=== PATIENT | male | born 1975 | race Caucasian/White ===

== ENCOUNTER 2020-08-11 14:33 | Emergency (ER) | payer SELFPAY ==
[2020-08-11 15:04] VITALS: BP 132/92; PULSE 87; RESP 14; TEMP 37; O2SAT 99; BMI 26.6
--- NOTE | 2020-08-11 15:08 | W.ED.DENTAL ---
HPI - Dental/Oral General: Chief complaint: Dental/Oral Stated complaint: pain from dental surgery Time Seen by Provider: 08/11/20 15:04 History of Present Illness: HPI Narrative: Patient is a 45-year-old male comes to the ED with dental pain. Patient had dental surgery on Thursday and had multiple upper right molars removed. He is having increased pain over the past couple days post surgery. He contacted his dentist today and the dentist told him to come to the ED to be evaluated and that he would see patient next week. Patient rates his pain a 10 out of 10. Denies any fevers, chills, nausea/vomiting. Associated symptoms: Denies fever(s) or odynophagia Review of Systems Const: Denies: fever(s), chills or fatigue Eyes: Denies: change in vision or eye discomfort ENMT: Reports: dental pain; Denies: throat pain, odynophagia, nasal discharge or nasal congestion Card: Denies: chest pain, palpitations, edema, swelling of feet/ankles, dyspnea on exertion or orthopnea Resp: Denies: dyspnea, productive cough or non-productive cough GI: Denies: abdominal pain, nausea, vomiting, diarrhea, constipation or hematochezia : Denies: flank pain, difficulty urinating, dysuria or hematuria Musc: Denies: neck pain, back pain or extremity swelling Skin/Breast: Denies: rash or new lesions Neuro: Denies: headache(s), numbness in extremities or weakness in extremities PFS ED PFSH: Medical History Panic disorder [episodic paroxysmal anxiety] Post-traumatic stress disorder, chronic Physical Exam Const: COMMON NORMALS: no acute distress, patient oriented x3 and alert GENERAL APPEARANCE: cooperative and comfortable HENMT: COMMON NORMALS: normocephalic HEAD & SCALP: normocephalic MOUTH: Normal oral and palatal mucosa present TEETH & GINGIVA: Yes other (Post multiple more removal on upper right jaw. Gingival edema no purulent ) THROAT: posterior oropharynx normal and uvula midline Neck/C-Spine: COMMON NORMALS: supple GENERAL: Yes normal visual inspection Resp: COMMON NORMALS: normal respiratory effort, No retractions, No use of accessory muscles and clear to auscultation bilaterally AUSCULTATION: clear to auscultation bilaterally Cardio: COMMON NORMALS: regular rate, regular rhythm, S1 normal heart sound present, S2 normal heart sound present, No gallops present (Cardio), No clicks present (Cardio), No murmurs present (Cardio) and Peripheral pulses 2+ throughout RATE: regular rate RHYTHM: regular rhythm HEART SOUNDS: S1 normal heart sound present and S2 normal heart sound present PERIPHERAL PULSES: Peripheral pulses 2+ throughout GI: COMMON NORMALS: Normal to inspection, nondistended, normoactive bowel sounds present, Soft to palpation, non-tender and no masses PALPATION: Yes Soft to palpation : COMMON NORMALS: Yes no CVA tenderness BLADDER/KIDNEY EXAM: Yes no CVA tenderness Back/Pelvis: COMMON NORMALS: no CVA tenderness Extremity: COMMON NORMALS: normal to inspection Neuro: COMMON NORMALS: patient oriented x3 and moves all extremities SENSORIUM/ORIENTATION: Yes alert Skin: GENERAL SKIN EXAM: dry skin Course Vital Signs: Vital signs: Vital Signs Temperature 98.6 F 08/11/20 15:04 Pulse Rate 84 08/11/20 15:43 Respiratory Rate 16 08/11/20 15:43 Blood Pressure 133/84 08/11/20 15:43 Pulse Oximetry 95 08/11/20 15:43 MDM - Dental/Oral MDM Narrative: Medical decision making narrative: Patient is a 47-year-old male comes to the ED with post dental pain. Patient had multiple right upper jaw molars removed several days ago. He is having increased pain since surgery. He called his dentist and they told him to come here to the ED to be evaluated. Patient was given a shot of morphine while here in the ED to help with dental pain. Patient has some gingival edema around surgical site but no other significant findings. Patient was discharged home given a prescription of [place] 5/325 tabs. Follow-up with dentist next week for reevaluation. Patient understood agree with plan. Discharge Plan Discharge Patient Disposition: Home Clinical Impression: Pain, dental Condition: Stable Prescriptions: No Action venlafaxine [Effexor XR] 150 mg capsule,extended release 24hr 150 mg PO DAILY Qty: 30 RF: 2 clonazepam 0.5 mg tablet 0.5 mg PO TID PRN (Reason: anxiety) Qty: 90 RF: 2 Discharge Orders: Discharge ED (Routine); Ordered 08/11/20 Ordered By: Seven Coleman Referrals: Delilah Grimm MD [Primary Care Provider] - Discharge Diet: Regular Discharge Activity: Resume usual activity Patient Instructions: Opioid Safety Activity Restrictions/Additional Instructions: Follow-up with dentist in a week for reevaluation. Take medications as prescribed. Return to the ER or your medical provider if condition worsens. Please read and understand discharge instructions. If any questions, please ask. Coding Level of Care Code ED General Utility Maintenance Repairer for [employer] Exam Comprehensive
[2020-08-11 15:25] VITALS: RESP 18
[2020-08-11] MEDS: morphine 4 mg/mL SDV 1 mL IM (15:25)
[2020-08-11 15:43] VITALS: BP 133/84; PULSE 84; RESP 16; O2SAT 95
== END 2020-08-11 15:44 | disposition home or self-care (01) ==
PROVIDERS: Emergency Provider Physician Assistant; PCP Family Medicine
DX: K08.89 Other specified disorders of teeth and supporting structures (principal)
CPT/HCPCS: 96372; 99283; J2270

== ENCOUNTER 2020-08-16 06:27 | Emergency (ER) | payer SELFPAY ==
[2020-08-16 06:30] VITALS: BP 127/85; PULSE 94; RESP 18; TEMP 36.6; O2SAT 97; BMI 26.9
[2020-08-16 06:36] VITALS: PULSE 94; O2SAT 99
[2020-08-16] MEDS: HYDROcodone-acetaminophen 5-325 mg Tablet 1 TAB PO (06:45)
[2020-08-16] MEDS: amoxicillin 500 mg Capsule PO (06:45)
--- NOTE | 2020-08-16 06:45 | W.ED.DENTAL ---
HPI - Dental/Oral General: Chief complaint: Dental/Oral Stated complaint: Rt side face pain Time Seen by Provider: 08/16/20 06:37 History of Present Illness: HPI Narrative: The patient comes to the ER complaining of right lower gum pain after he had a procedure on August 08 removing a few teeth. He says he is still in severe pain and it has gotten worse yesterday and has a job that he needs to be in less pain for for the next couple days until he can get into his dentist. Denies fevers. Normal voice able to eat and drink normal. Discussed with him not to drive while taking the hydrocodone as he will be considered intoxicated. He understands and will have his sister drive him. He has taken more than the recommended dose in the past 2 days of ibuprofen without relief of his pain. Onset (ago): day(s) (8) Severity: moderate Associated symptoms: Reports no associated symptoms; Denies ear or mastoid pain or tongue swelling Review of Systems General: Reports: 10 or more systems reviewed and unremarkable except in HPI and below Const: Denies: fatigue Eyes: Denies: change in vision, blurry vision or eye redness ENMT: Denies: throat pain, swelling of lips/tongue, ear or mastoid pain or nasal congestion Card: Denies: chest pain, palpitations, irregular heart rhythm, edema, dyspnea on exertion or orthopnea Resp: Denies: dyspnea, productive cough or non-productive cough GI: Denies: abdominal pain, diarrhea or GI cramping : Denies: flank pain, urinary frequency or urinary urgency Musc: Denies: neck pain, back pain, extremity pain, joint pain, joint redness, limited range of motion or muscle weakness Skin/Breast: Denies: rash, pruritus, erythema, skin pain or skin tenderness Neuro: Denies: headache(s), numbness in extremities, weakness in extremities, sensory changes, difficulty walking, dizziness, confusion or Slurred speech present Psych: Denies: anxiety or depression Endo: Denies: polyuria All/Imm: Denies: urticaria, throat swelling or tongue swelling PFSH ED PFSH: Medical History Panic disorder [episodic paroxysmal anxiety] Post-traumatic stress disorder, chronic Physical Exam Const: COMMON NORMALS: no acute distress, average body habitus, patient oriented x3, no limitations, healthy appearing, alert and well nourished GENERAL APPEARANCE: cooperative, comfortable, well kempt and well developed ORIENTATION/CONSCIOUSNESS: Yes awake, Yes oriented to person, Yes oriented to place and Yes oriented to time HENMT: COMMON NORMALS: normocephalic, external ears normal and Normal external nose present HEAD & SCALP: normal to inspection and normocephalic NOSE: Normal external nose present EXTERNAL EAR: Yes external ears normal MOUTH: Normal oral and palatal mucosa present THROAT: posterior oropharynx normal THROAT IMAGE: 1. Surgically removed teeth with tenderness to the area. No significant erythema or swelling. Eye: COMMON NORMALS: Equal, round and reactive pupils present and EOMs intact bilaterally GENERAL EYE: appearance normal, both eyes and all related structures PUPIL: Yes Equal, round and reactive pupils present Neck/C-Spine: COMMON NORMALS: full ROM, no lymphadenopathy, no meningeal signs and no JVD GENERAL: Yes normal visual inspection Lymph: LYMPHATIC: no lymphadenopathy noted Chest: COMMONS NORMALS: normal inspection of the chest and normal palpation of entire chest wall Resp: COMMON NORMALS: normal respiratory effort, No retractions, No use of accessory muscles, clear to auscultation bilaterally and percussion normal EFFORT & INSPECTION: Yes able to speak in complete sentences AUSCULTATION: clear to auscultation bilaterally PERCUSSION: percussion normal Cardio: COMMON NORMALS: no JVD, regular rate, regular rhythm, S1 normal heart sound present, S2 normal heart sound present and Peripheral pulses 2+ throughout RATE: regular rate RHYTHM: regular rhythm HEART SOUNDS: S1 normal heart sound present and S2 normal heart sound present PERIPHERAL PULSES: Peripheral pulses 2+ throughout GI: COMMON NORMALS: Normal to inspection, nondistended, normoactive bowel sounds present, Soft to palpation, non-tender and no masses INSPECTION: Yes normal to inspection PALPATION: Yes Soft to palpation : COMMON NORMALS: Yes no CVA tenderness BLADDER/KIDNEY EXAM: Yes no CVA tenderness Back/Pelvis: COMMON NORMALS: no CVA tenderness, thoracic and lumbar spine normal to inspection, no thoracic nor lumbar tenderness and thoraco-lumbar ROM normal Extremity: COMMON NORMALS: normal to inspection, full ROM, capillary refill normal, no joint enlargement and no pedal edema GENERAL: Yes normal exam except as noted Neuro: COMMON NORMALS: patient oriented x3, CN's II-XII intact bilaterally, moves all extremities, no focal motor deficits, no sensory deficits noted and gait normal SENSORIUM/ORIENTATION: Yes alert, Yes oriented to person, Yes oriented to place and Yes oriented to time MENINGEAL SIGNS: Yes no meningeal signs Psych: COMMON NORMALS: mental status grossly normal, Normal thought process present, cooperative, normal affect and speech normal APPEARANCE: Yes well kempt ATTITUDE: Yes calm SPEECH: Yes normal speech THOUGHT PROCESS: Normal thought process present Skin: COMMON NORMALS: no rashes or lesions noted GENERAL SKIN EXAM: no rashes or lesions noted Course Vital Signs: Vital signs: Vital Signs Temperature 97.9 F 08/16/20 06:30 Pulse Rate 94 08/16/20 06:36 Respiratory Rate 18 08/16/20 06:30 Blood Pressure 127/85 08/16/20 06:30 Pulse Oximetry 99 08/16/20 06:36 MDM - Dental/Oral MDM Narrative: Medical decision making narrative: Here for continued postsurgical pain. No significant signs of infection seen however will place on amoxicillin and give hydrocodone for pain. Discussed he cannot drive with this medicine. ER with worsening symptoms otherwise follow-up with dentist next Thursday as he already has scheduled Discharge Plan Discharge Patient Disposition: Home Clinical Impression: Dental caries Condition: Stable Prescriptions: New amoxicillin 500 mg capsule 500 mg PO TID 10 Days Qty: 30 RF: 0 hydrocodone-acetaminophen 5-325 mg tablet 1 tab PO Q6H PRN (Reason: pain) Qty: 12 RF: 0 No Action venlafaxine [Effexor XR] 150 mg capsule,extended release 24hr 150 mg PO DAILY Qty: 30 RF: 2 clonazepam 0.5 mg tablet 0.5 mg PO TID PRN (Reason: anxiety) Qty: 90 RF: 2 Discharge Orders: Discharge ED (Routine); Ordered 08/16/20 Ordered By: Akira Russo Referrals: Delilah Grimm MD [Primary Care Provider] - Discharge Diet: Advance as tolerated Discharge Activity: Resume usual activity Patient Instructions: Toothache (ED), Opioid Safety Activity Restrictions/Additional Instructions: You are likely still having postsurgical pain however an infection cannot be ruled out. Please take the amoxicillin to help with this and take the hydrocodone only for severe pain. Do not mix it with drugs or alcohol and do not operate machinery including driving a car while taking this medicine. Please return to the ER with worsening symptoms otherwise follow-up with your dentist next Thursday as you already have scheduled. Coding Level of Care Code ED Controls Engineer for Ananth Pérez
[2020-08-16 06:51] VITALS: PULSE 94; O2SAT 98
== END 2020-08-16 06:52 | disposition home or self-care (01) ==
PROVIDERS: Emergency Provider Family Medicine; PCP Family Medicine
DX: K02.9 Dental caries, unspecified (principal)
CPT/HCPCS: 99283

== ENCOUNTER 2020-09-06 09:41 | Emergency (ER) | payer SELFPAY ==
[2020-09-06 09:55] VITALS: TEMP 36.4; BMI 28.5
[2020-09-06 10:01] VITALS: BP 131/97; PULSE 98; RESP 14; O2SAT 99
--- NOTE | 2020-09-06 10:14 | ED_ITS ---
HPI - Dental/Oral General: Chief complaint: Dental/Oral Stated complaint: severe tooth aches Time Seen by Provider: 09/06/20 09:47 Source: patient Mode of arrival: ambulatory Limitations: no limitations History of Present Illness: HPI Narrative: 45-year-old male patient presents to the emergency department with dental pain. He states attempted to get into his dental provider today but was unable to do so and referred to the ED for further evaluation. He has an appointment on Thursday with his dentist. He reports dental extractions are scheduled with dental implants. He reports right lower dental pain x2 days, reports tooth is broken, experiencing sharp pain. MD Complaint: tooth pain Location: Tooth # (18) Duration: constant Severity: moderate Relieving factors: nothing Exacerbating factors: chewing and cold Context: history of dental caries and poor dental care Associated symptoms: Reports ear or mastoid pain and gum swelling; Denies fever(s) or odynophagia Treatment prior to arrival: other (IBu and APAP) Review of Systems General: Reports: 10 or more systems reviewed and unremarkable except in HPI and below Const: Denies: fever(s), chills, fatigue, malaise or diaphoresis Eyes: Denies: blurry vision or eye redness ENMT: Reports: dental pain and ear or mastoid pain; Denies: throat pain, odynophagia, swelling of lips/tongue, nasal congestion or nasal obstruction Card: Denies: chest pain, palpitations or irregular heart rhythm Resp: Denies: dyspnea, productive cough, non-productive cough or wheezing GI: Denies: abdominal pain, nausea or vomiting : Denies: dysuria Musc: Denies: back pain Skin/Breast: Denies: rash or pruritus Neuro: Denies: headache(s), weakness in extremities or behavioral changes Psych: Denies: anxiety, depression or change in appetite Lenard/Lymph: Denies: easy bruising PFS ED PFSH: Medical History Panic disorder [episodic paroxysmal anxiety] Post-traumatic stress disorder, chronic Physical Exam Const: COMMON NORMALS: no acute distress, patient oriented x3, healthy appearing, alert and well nourished GENERAL APPEARANCE: cooperative, comfortable and well hydrated ORIENTATION/CONSCIOUSNESS: Yes awake, Yes oriented to person, Yes oriented to place and Yes oriented to time HENMT: COMMON NORMALS: normocephalic, atraumatic, external ears normal, EAC's normal, TM's normal bilaterally, Normal external nose present and moist oral mucous membranes HEAD & SCALP: normal to inspection, normocephalic and atraumatic FACE & SINUS: normal facial exam and sinuses nontender NOSE: Normal external nose present and No nasal polyps present EXTERNAL EAR: Yes external ears normal EXTERNAL AUDITORY CANAL: EAC's normal TYMPANIC MEMBRANE: TM's normal bilaterally MOUTH: Normal oral and palatal mucosa present, lip normal and tongue normal TEETH & GINGIVA: Yes bridge (upper), Yes caries, Yes poor dentition and Yes teeth discoloration TEETH & GINGIVA IMAGES: 1. avulsion, old, dental caires with discoloration, small amount of gingival swelling and erythema THROAT: posterior oropharynx normal and tonsils normal Eye: COMMON NORMALS: Equal, round and reactive pupils present and EOMs intact bilaterally GENERAL EYE: appearance normal, both eyes and all related structures PUPIL: Yes Equal, round and reactive pupils present Neck/C-Spine: COMMON NORMALS: full ROM, no lymphadenopathy and supple GE NERAL: Yes normal visual inspection, Yes trachea midline and Yes other (Negative findings for Carlos angina) CERVICAL SPINE: Yes cervical ROM normal Lymph: LYMPHATIC: no lymphadenopathy noted Chest: COMMONS NORMALS: normal inspection of the chest Resp: COMMON NORMALS: normal respiratory effort and clear to auscultation bilaterally AUSCULTATION: clear to auscultation bilaterally Cardio: COMMON NORMALS: regular rhythm, S1 normal heart sound present, S2 normal heart sound present and Peripheral pulses 2+ throughout RHYTHM: regular rhythm HEART SOUNDS: S1 normal heart sound present and S2 normal heart sound present PERIPHERAL PULSES: Peripheral pulses 2+ throughout GI: COMMON NORMALS: Soft to palpation and non-tender INSPECTION: Yes normal to inspection PALPATION: Yes Soft to palpation : COMMON NORMALS: Yes no CVA tenderness BLADDER/KIDNEY EXAM: Yes no CVA tenderness Back/Pelvis: COMMON NORMALS: no CVA tenderness and thoracic and lumbar spine normal to inspection Extremity: COMMON NORMALS: normal to inspection and capillary refill normal Neuro: COMMON NORMALS: patient oriented x3 and no focal motor deficits SENSORIUM/ORIENTATION: Yes alert, Yes oriented to person, Yes oriented to place and Yes oriented to time Psych: COMMON NORMALS: mental status grossly normal, Normal thought process present and cooperative ACTIVITY/MOTOR BEHAVIOR: Yes appropriate eye contact THOUGHT PROCESS: Normal thought process present Skin: COMMON NORMALS: no rashes or lesions noted and turgor normal GENERAL SKIN EXAM: no rashes or lesions noted and turgor normal Course Vital Signs: Vital signs: Vital Signs Temperature 97.5 F L 09/06/20 09:55 Pulse Rate 98 09/06/20 10:01 Respiratory Rate 14 09/06/20 10:01 Blood Pressure 131/97 09/06/20 10:01 Pulse Oximetry 99 09/06/20 10:01 Discharge Plan Discharge Patient Disposition: Home Clinical Impression: Toothache, Dental caries Condition: Stable Prescriptions: New clindamycin HCl 300 mg capsule 300 mg PO QID 7 Days Qty: 28 RF: 0 Lidocaine Viscous 2 % solution 10 ml topical Q3H PRN (Reason: pain) Qty: 100 RF: 0 chlorhexidine gluconate 0.12 % mouthwash 15 ml buccal BID Qty: 118 RF: 0 No Action venlafaxine [Effexor XR] 150 mg capsule,extended release 24hr 150 mg PO DAILY Qty: 30 RF: 2 clonazepam 0.5 mg tablet 0.5 mg PO TID PRN (Reason: anxiety) Qty: 90 RF: 2 hydrocodone-acetaminophen 5-325 mg tablet 1 tab PO Q6H PRN (Reason: pain) Qty: 12 RF: 0 Discharge Orders: Discharge ED (Routine); Ordered 09/06/20 Ordered By: Leida Givens Referrals: Delilah Grimm MD [Primary Care Provider] - Discharge Diet: Soft Mechanical Discharge Activity: Resume usual activity Patient Instructions: Dental Abscess (ED), Dental Caries (ED), Toothache (ED), Opioid Safety Activity Restrictions/Additional Instructions: Apply dental wax as directed as discussed today to the affected tooth Follow-up with your dentist as scheduled on Thursday without fail Take antibiotics until all gone even if feeling better Take extra strength Tylenol, 1000 mg 3 times daily as needed for pain Do not exceed this dose as toxicity can occur Take 600 mg of ibuprofen 3 times daily as needed for pain Warm salt water swish and spit several times daily If you develop difficulty breathing, inability to swallow, return to the emergency department immediately Coding Level of Care Code ED Cyber Transport Systems Specialist for Ananth Pérez
[2020-09-06] MEDS: HYDROcodone-acetaminophen 5-325 mg Tablet 1 TAB PO (10:21)
== END 2020-09-06 10:25 | disposition home or self-care (01) ==
PROVIDERS: Emergency Provider Nurse Practitioner Family; PCP Family Medicine
DX: K02.9 Dental caries, unspecified (principal)
CPT/HCPCS: 99282

== ENCOUNTER 2020-09-14 11:39 | Emergency (ER) | payer SELFPAY ==
[2020-09-14 11:50] VITALS: BP 141/89; PULSE 82; RESP 18; TEMP 36.7; O2SAT 98; BMI 26.9
[2020-09-14 11:57] VITALS: BP 141/89; PULSE 82; RESP 18; TEMP 36.7; O2SAT 98
--- NOTE | 2020-09-14 12:09 | W.ED.DENTAL ---
HPI - Dental/Oral General: Chief complaint: Dental/Oral Stated complaint: DENTAL PAIN Time Seen by Provider: 09/14/20 11:58 History of Present Illness: HPI Narrative: Patient states that he is scheduled to follow-up with dental next Thursday to have tooth removed. He said he use lidocaine jelly and that is helping with discomfort but it continues to hurt. MD Complaint: tooth pain Location: Tooth # Teeth map: 1. Onset (ago): month(s) Duration: constant Severity: moderate Relieving factors: other (Lidocaine jelly) Exacerbating factors: chewing and cold Context: history of dental caries and poor dental care Associated symptoms: Reports no associated symptoms; Denies fever(s) Treatment prior to arrival: topical analgesic and oral analgesic Review of Systems Const: Denies: fever(s) or chills ENMT: Reports: dental pain and other Psych: Denies: anxiety [facility] ED PFSH: Medical History Panic disorder [episodic paroxysmal anxiety] Post-traumatic stress disorder, chronic Physical Exam Const: COMMON NORMALS: no acute distress HENMT: TEETH & GINGIVA IMAGES: 1. Tooth is broken black slight tenderness gum no swelling Psych: COMMON NORMALS: mental status grossly normal Course Vital Signs: Vital signs: Vital Signs Temperature 98.1 F 09/14/20 11:57 Pulse Rate 82 09/14/20 11:57 Respiratory Rate 18 09/14/20 11:57 Blood Pressure 141/89 09/14/20 11:57 Pulse Oximetry 98 09/14/20 11:57 MDM - Dental/Oral MDM Narrative: Medical decision making narrative: Story is changed some from previous visits. Patient is now scheduled to follow-up with dental next Thursday up in [place] have tooth removed. Patient told me that lidocaine gel is helping with pain but pain does discontinue after gel effects wear off. Discharge Plan Discharge Patient Disposition: Home Clinical Impression: Dental caries Condition: Stable Prescriptions: New clindamycin HCl 300 mg capsule 300 mg PO Q8H 7 Days Qty: 21 RF: 0 No Action venlafaxine [Effexor XR] 150 mg capsule,extended release 24hr 150 mg PO DAILY Qty: 30 RF: 2 clonazepam 0.5 mg tablet 0.5 mg PO TID PRN (Reason: anxiety) Qty: 90 RF: 2 hydrocodone-acetaminophen 5-325 mg tablet 1 tab PO Q6H PRN (Reason: pain) Qty: 12 RF: 0 Lidocaine Viscous 2 % solution 10 ml topical Q3H PRN (Reason: pain) Qty: 100 RF: 0 chlorhexidine gluconate 0.12 % mouthwash 15 ml buccal BID Qty: 118 RF: 0 Discharge Orders: Discharge ED (Routine); Ordered 09/14/20 Ordered By: Tj Potter Discharge Diet: Usual diet Discharge Activity: Resume usual activity Patient Instructions: Dental Caries (ED) Activity Restrictions/Additional Instructions: Follow-up with dental as scheduled Coding Level of Care Code ED Non Morse Intercept Technician for Ananth Pérez
== END 2020-09-14 12:16 | disposition home or self-care (01) ==
PROVIDERS: Emergency Provider Nurse Practitioner Family
DX: K02.9 Dental caries, unspecified (principal)
CPT/HCPCS: 99282

== ENCOUNTER 2020-11-04 09:11 | Emergency (ER) | payer SELFPAY ==
[2020-11-04 09:24] VITALS: BP 141/90; PULSE 96; RESP 15; TEMP 36.2; O2SAT 98; BMI 27.8
--- NOTE | 2020-11-04 09:27 | W.ED.DENTAL ---
HPI - Dental/Oral General: Chief complaint: Dental/Oral Stated complaint: requesting pain meds Time Seen by Provider: 11/04/20 09:16 History of Present Illness: HPI Narrative: Patient is a 45-year-old male comes to the ED with dental pain. Patient has been seen here in the ED for same dental pain back on September 14 and September 06. Patient says he was at the ED department at the hospital in [place] yesterday and they sent him home with an antibiotic and a prescription for Tylenol and ibuprofen. He states he has an appointment with a dentist this week to get his teeth pulled. His only complaint here in the ED today is the dental pain on the left side of his mouth. He says the Tylenol and ibuprofen are not helping. Associated symptoms: Denies fever(s) or odynophagia Review of Systems Const: Denies: fever(s), chills or fatigue Eyes: Denies: change in vision or eye discomfort ENMT: Reports: dental pain; Denies: throat pain, odynophagia, nasal discharge or nasal congestion Card: Denies: chest pain, palpitations, edema, swelling of feet/ankles, dyspnea on exertion or orthopnea Resp: Denies: dyspnea, productive cough or non-productive cough GI: Denies: abdominal pain, nausea, vomiting, diarrhea, constipation or hematochezia : Denies: flank pain, difficulty urinating, dysuria or hematuria Musc: Denies: neck pain, back pain or extremity swelling Skin/Breast: Denies: rash or new lesions Neuro: Denies: headache(s), numbness in extremities or weakness in extremities [facility] ED PFSH: Medical History Panic disorder [episodic paroxysmal anxiety] Post-traumatic stress disorder, chronic Physical Exam Const: COMMON NORMALS: no acute distress, patient oriented x3 and alert GENERAL APPEARANCE: cooperative and comfortable HENMT: COMMON NORMALS: normocephalic HEAD & SCALP: normocephalic MOUTH: Normal oral and palatal mucosa present TEETH & GINGIVA: Yes caries (Left lower molar #17), Yes gingiva abnormal edematous and Yes poor dentition THROAT: posterior oropharynx normal and uvula midline Neck/C-Spine: COMMON NORMALS: supple GENERAL: Yes normal visual inspection Resp: COMMON NORMALS: normal respiratory effort, No retractions, No use of accessory muscles and clear to auscultation bilaterally AUSCULTATION: clear to auscultation bilaterally Cardio: COMMON NORMALS: regular rate, regular rhythm, S1 normal heart sound present, S2 normal heart sound present, No gallops present (Cardio), No clicks present (Cardio), No murmurs present (Cardio) and Peripheral pulses 2+ throughout RATE: regular rate RHYTHM: regular rhythm HEART SOUNDS: S1 normal heart sound present and S2 normal heart sound present PERIPHERAL PULSES: Peripheral pulses 2+ throughout GI: COMMON NORMALS: Normal to inspection, nondistended, normoactive bowel sounds present, Soft to palpation, non-tender and no masses PALPATION: Yes Soft to palpation : COMMON NORMALS: Yes no CVA tenderness BLADDER/KIDNEY EXAM: Yes no CVA tenderness Back/Pelvis: COMMON NORMALS: no CVA tenderness Extremity: COMMON NORMALS: normal to inspection Neuro: COMMON NORMALS: patient oriented x3 and moves all extremities SENSORIUM/ORIENTATION: Yes alert Skin: GENERAL SKIN EXAM: dry skin Course Vital Signs: Vital signs: Vital Signs Temperature 97.1 F L 11/04/20 09:24 Pulse Rate 96 11/04/20 09:24 Respiratory Rate 15 11/04/20 09:24 Blood Pressure 141/90 11/04/20 09:24 Pulse Oximetry 98 11/04/20 09:24 MDM - Dental/Oral MDM Narrative: Medical decision making narrative: Patient is a 45-year-old male comes to the ED with dental pain. He is already on a prescription for an antibiotic and has an appointment with a dentist to have some of his pain teeth removed this week. His main complaint here is just the dental pain. Patient was given a dose of tramadol while here in the ED to help with pain. He was then discharged home and told to continue taking his previously prescribed antibiotic, ibuprofen and Tylenol. Return to ED precautions given. Patient understood and agreed with plan. Discharge Plan Discharge Patient Disposition: Home Clinical Impression: Pain due to dental caries Condition: Stable Prescriptions: No Action trazodone 50 mg tablet 50 mg PO .HS PRN (Reason: sleep) Qty: 30 RF: 2 venlafaxine [Effexor XR] 150 mg capsule,extended release 24hr 150 mg PO DAILY Qty: 30 RF: 2 clonazepam 0.5 mg tablet 0.5 mg PO TID PRN (Reason: anxiety) Qty: 90 RF: 2 hydrocodone-acetaminophen 5-325 mg tablet 1 tab PO Q6H PRN (Reason: pain) Qty: 12 RF: 0 Lidocaine Viscous 2 % solution 10 ml topical Q3H PRN (Reason: pain) Qty: 100 RF: 0 chlorhexidine gluconate 0.12 % mouthwash 15 ml buccal BID Qty: 118 RF: 0 Discharge Orders: Discharge ED (Routine); Ordered 11/04/20 Ordered By: Seven Coleman Discharge Diet: Regular Discharge Activity: Resume usual activity Patient Instructions: Dental Caries (ED) Activity Restrictions/Additional Instructions: Follow-up with dentist at your scheduled appointment this coming week. Continue taking your previously prescribed antibiotic and take [id number] ibuprofen or Tylenol per bottle instructions for pain. Return to the ER or your medical provider if condition worsens. Please read and understand discharge instructions. Thank you for choosing [facility] for your healthcare needs today. Please realize this is an emergency room and that we are providing you with a medical screening exam and this may not be complete and all inclusive of all the testing and or work up that you may need to determine your ailment or severity of your illness. It is very important that you follow up as instructed or that you return to the Emergency Department should you have concerns or if your condition changes or worsens in any way. Coding Level of Care Code ED Targeting Acquisition Officer for Ananth Pérez Exam Comprehensive
[2020-11-04] MEDS: TRAMadol 50 mg Tablet 100 MG PO (09:39)
== END 2020-11-04 09:45 | disposition home or self-care (01) ==
PROVIDERS: Emergency Provider Physician Assistant
DX: K02.9 Dental caries, unspecified (principal)
CPT/HCPCS: 99282

== ENCOUNTER 2020-12-12 06:56 | Emergency (ER) | payer SELFPAY ==
[2020-12-12 07:06] VITALS: BP 123/79; PULSE 92; RESP 18; TEMP 36.5; O2SAT 96; BMI 28.2
[2020-12-12 07:14] VITALS: BP 123/79; PULSE 94; O2SAT 95
--- NOTE | 2020-12-12 07:36 | ED_ITS ---
HPI - General Adult General: Chief complaint: General Medical Stated complaint: KNEE PAIN AND MOUTH PAIN Time Seen by Provider: 12/12/20 07:08 History of Present Illness: HPI narrative: This young man presents with chronic bilateral knee pain. Has seen emr specialist told that he needed knee replacements. He states that he has had 2 MRIs on his knees. Says it hurts for him to do his job and get down his knees on concrete. Patient also states he had a tooth pulled recently and a left part of the tooth in there and that causes some discomfort on his lower left gum molar area. Patient also says over the last 10 years he has had bloody stools. He said he has had 2 colonoscopies at [facility] and reported this to the specialist and they said that already have been able to find is a couple polyps. He said he is not had any medication prescribed to him for this. Said he has been told what is his problem. Onset (ago): year(s) Associated symptoms: Reports no associated symptoms; Deny chest pain, dyspnea, headache(s), nausea, rash or vomiting Review of Systems Const: Denies: fever(s), chills or body aches Eyes: Denies: change in vision or blurry vision ENMT: Reports: dental pain; Denies: throat pain or nasal congestion Card: Denies: chest pain or dyspnea on exertion Resp: Denies: dyspnea, productive cough or non-productive cough GI: Reports: hematochezia (See HPI); Denies: abdominal pain, nausea or vomiting : Denies: difficulty urinating Musc: Reports: joint pain (Bilateral knees); Denies: extremity pain Skin/Breast: Denies: rash Neuro: Denies: headache(s) Psych: Denies: anxiety or depression Lenard/Lymph: Denies: easy bruising PFS ED PFSH: Medical History Panic disorder [episodic paroxysmal anxiety] Post-traumatic stress disorder, chronic Social History Smoking and tobacco status: current every day smoker Physical Exam Const: COMMON NORMALS: no acute distress, average body habitus and patient oriented x3 HENMT: COMMON NORMALS: normocephalic HEAD & SCALP: normal to inspection and normocephalic FACE & SINUS: normal facial exam TEETH & GINGIVA IMAGES: 1. Appears to be piece of tooth in the gum molar 17 area. No redness or inflammation noted to the gum area Eye: COMMON NORMALS: conjunctivae normal GENERAL EYE: appearance normal, both eyes and all related structures CONJUNCTIVA: Yes conjunctivae normal Neck/C-Spine: COMMON NORMALS: no JVD Chest: COMMONS NORMALS: normal inspection of the chest Resp: COMMON NORMALS: normal respiratory effort Cardio: COMMON NORMALS: no JVD, regular rate and regular rhythm RATE: regular rate RHYTHM: regular rhythm GI: COMMON NORMALS: Normal to inspection, nondistended, normoactive bowel sounds present Extremity: COMMON NORMALS: normal to inspection and full ROM OTHER: Knees are without swelling today has full range of motion no tenderness noted on range of motion Neuro: COMMON NORMALS: patient oriented x3 Course Vital Signs: Vital signs: Vital Signs Temperature 97.7 F 12/12/20 07:06 Pulse Rate 94 12/12/20 07:14 Respiratory Rate 18 12/12/20 07:06 Blood Pressure 123/79 12/12/20 07:14 Pulse Oximetry 95 12/12/20 07:14 MDM - General Adult MDM Narrative: Medical decision making narrative: Mr. Barnett presents here to discuss ongoing chronic knee pain ongoing hematochezia. And ongoing dental pain. I provide Mr. Barnett with some recommendations possible treatments and advice on how to further pursue the chronic problems he has. Patient said he will be get established with a primary care provider here soon and seek referrals. Discharge Plan Discharge Patient Disposition: Home Clinical Impression: Chronic dental pain, Hematochezia Knee pain, chronic Qualifiers: Laterality: bilateral Qualified Code(s): M25.561 - Pain in right knee Condition: Stable Prescriptions: New prednisone 10 mg tablet 10 mg PO DAILY Qty: 14 RF: 0 Lidocaine Viscous 2 % solution 1 applic mucous membrane Q3H PRN (Reason: pain) Qty: 100 RF: 0 No Action baclofen 10 mg tablet 10 mg PO BID PRN (Reason: muscle pain) Qty: 8 RF: 0 naproxen 500 mg tablet 500 mg PO BID 10 Days Qty: 20 RF: 0 venlafaxine [Effexor XR] 150 mg capsule,extended release 24hr 150 mg PO DAILY Qty: 30 RF: 2 clonazepam 0.5 mg tablet 0.5 mg PO TID PRN (Reason: anxiety) Qty: 90 RF: 2 hydrocodone-acetaminophen 5-325 mg tablet 1 tab PO Q6H PRN (Reason: pain) Qty: 12 RF: 0 Discharge Orders: Discharge ED (Routine); Ordered 12/12/20 Ordered By: Tj Potter Discharge Diet: Usual diet Discharge Activity: Increase activity as tolerated Patient Instructions: Knee Pain (ED), Arthralgia (ED), Toothache (ED) Activity Restrictions/Additional Instructions: Follow-up with medical provider as directed. Take medications as prescribed. Return to the ER or your medical provider if condition worsens. Please read and understand discharge instructions. If any questions ask please. Get established primary care provider soon as possible and see about getting referrals to GI specialist and emr specialist. Stand Alone Forms: Work/School Release Coding Level of Care Code ED Superintendent Storage Area for Ananth Fwd Exam Comprehensive
== END 2020-12-12 07:36 | disposition home or self-care (01) ==
LOC: ER 08:01
PROVIDERS: Emergency Provider Nurse Practitioner Family
DX: G89.29 Other chronic pain (principal); M25.561 Pain in right knee; K08.89 Other specified disorders of teeth and supporting structures; K92.1 Melena; F17.210 Nicotine dependence, cigarettes, uncomplicated
CPT/HCPCS: 99282

== ENCOUNTER 2021-02-22 02:03 | Emergency (ER) | payer SELFPAY ==
[2021-02-22 02:08] VITALS: BP 134/94; PULSE 77; RESP 18; TEMP 36.7; O2SAT 98; BMI 28.2
--- NOTE | 2021-02-22 02:23 | W.ED.EXTPRO ---
HPI - Extremity Problem General: Chief complaint: Extremity Problem,Nontraumatic Stated complaint: Leg Pain both Legs Time Seen by Provider: 02/22/21 02:23 History of Present Illness: HPI Narrative: 45-year-old male patient comes in today for complaints of lower extremity pains after COVID-19 vaccine. Patient had vaccine on Thursday started having pain and discomfort last night and has been unable to sleep tonight due to his leg discomfort. Patient has been using some Tylenol and ibuprofen with minimal relief. Patient has a history of trauma to the left lower leg. Review of Systems General: Reports: 10 or more systems reviewed and unremarkable except in HPI and below Musc: Reports: other (Leg pain.) PFS ED PFSH: Medical History Panic disorder [episodic paroxysmal anxiety] Post-traumatic stress disorder, chronic Social History Smoking and tobacco status: current every day smoker Physical Exam Const: COMMON NORMALS: no acute distress and patient oriented x3 GENERAL APPEARANCE: cooperative HENMT: COMMON NORMALS: normocephalic and Normal external nose present HEAD & SCALP: normal to inspection and normocephalic NOSE: Normal external nose present Eye: GENERAL EYE: appearance normal, both eyes and all related structures Neck/C-Spine: COMMON NORMALS: full ROM Chest: COMMONS NORMALS: normal inspection of the chest Resp: COMMON NORMALS: normal respiratory effort EFFORT & INSPECTION: Yes able to speak in complete sentences Cardio: COMMON NORMALS: regular rate and regular rhythm RATE: regular rate RHYTHM: regular rhythm GI: COMMON NORMALS: non-tender Extremity: COMMON NORMALS: normal to inspection Neuro: COMMON NORMALS: patient oriented x3 and moves all extremities Psych: COMMON NORMALS: mental status grossly normal and cooperative Skin: COMMON NORMALS: no rashes or lesions noted GENERAL SKIN EXAM: no rashes or lesions noted Course Vital Signs: Vital signs: Vital Signs Temperature 98.1 F 02/22/21 02:08 Pulse Rate 77 02/22/21 02:08 Respiratory Rate 18 02/22/21 02:08 Blood Pressure 134/94 02/22/21 02:08 Pulse Oximetry 98 02/22/21 02:08 MDM - Extremity (Nontraumatic) MDM Narrative: Medical decision making narrative: 45-year-old male patient comes in today for complaints of bilateral lower leg pain worse on the left. Patient got Covid vaccine done on Thursday and has had increased leg discomfort for the last 2 nights. Exam notes no redness or swelling to the lower extremities. Pulses are intact. Vital signs are normal. Differential diagnosis includes but not limited to myalgias due to COVID-19 vaccinations, DVT, arthritis, restless legs syndrome. There is no sign of DVT or other signs of inflammation. Suspect patient probably has myalgias secondary to his vaccine administration. I encourage fluids rest Tylenol and ibuprofen. Patient was given a prescription for 7 tablets of hydrocodone for breakthrough pain. Patient agreed to plan and need for follow-up or return to ER Discharge Plan Discharge Patient Disposition: Home Clinical Impression: Myalgia after COVID-19 vaccination Condition: Stable Prescriptions: New hydrocodone-acetaminophen 5-325 mg tablet 1 tab PO Q8H PRN (Reason: pain) Qty: 7 RF: 0 No Action clonazepam 0.5 mg tablet 0.5 mg PO QID PRN (Reason: anxiety) Qty: 120 RF: 2 venlafaxine [Effexor XR] 150 mg capsule,extended release 24hr 150 mg PO DAILY Qty: 30 RF: 2 baclofen 10 mg tablet 10 mg PO BID PRN (Reason: muscle pain) Qty: 8 RF: 0 naproxen 500 mg tablet 500 mg PO BID 10 Days Qty: 20 RF: 0 prednisone 10 mg tablet 10 mg PO DAILY Qty: 14 RF: 0 Lidocaine Viscous 2 % solution 1 applic mucous membrane Q3H PRN (Reason: pain) Qty: 100 RF: 0 hydrocodone-acetaminophen 5-325 mg tablet 1 tab PO Q6H PRN (Reason: pain) Qty: 12 RF: 0 Discharge Orders: Discharge ED (Routine); Ordered 02/22/21 Ordered By: Beni Ge Discharge Diet: Usual diet Discharge Activity: Increase activity as tolerated Patient Instructions: Opioid Safety Activity Restrictions/Additional Instructions: Activity as tolerated. Drink plenty of water with medication. Use acetaminophen and ibuprofen to control discomfort. Use hydrocodone for breakthrough pain. Follow-up with primary care for further instruction. Return to the ER for new concerns. Coding Level of Care Code ED Medical Voucher Clerk for Ananth Pérez
[2021-02-22] MEDS: HYDROcodone-acetaminophen 5-325 mg Tablet 1 TAB PO (02:53)
[2021-02-22 03:06] VITALS: BP 119/77; PULSE 79; RESP 16; O2SAT 99
== END 2021-02-22 03:00 | disposition home or self-care (01) ==
PROVIDERS: Emergency Provider Nurse Practitioner Family
DX: M79.10 Myalgia, unspecified site (principal); T50.B95A Adverse effect of other viral vaccines, initial encounter; F17.210 Nicotine dependence, cigarettes, uncomplicated
CPT/HCPCS: 99282

== ENCOUNTER 2021-03-20 09:21 | Emergency (ER) | payer SELFPAY ==
[2021-03-20 09:32] VITALS: BP 145/90; PULSE 86; RESP 18; TEMP 37; O2SAT 97; BMI 28.2
--- NOTE | 2021-03-20 10:11 | W.ED.EXTPRO ---
HPI - Extremity Problem General: Chief complaint: Extremity Problem,Nontraumatic Stated complaint: Pain in Both Knees Time Seen by Provider: 03/20/21 09:22 Source: patient Mode of arrival: ambulatory Limitations: no limitations History of Present Illness: HPI Narrative: Patient is a 45-year-old male who presents to ED today with a complaint of bilateral (left greater than right) knee pain. Patient tells me he has suffered from chronic knee pain for several years. He states a fairly significant injury to his left knee resulting in internal derangement that was never fixed operatively. He tells me he was seen by an orthopedic surgeon at [facility] in [place] last year who told him both knees probably needed to be replaced but they did not recommend surgery given his young age. Patient tells me he has an appointment with Dr. Avendano at our orthopedic clinic in approximately 2 weeks for a second opinion. He tells me he has been treating at home with 800mg ibuprofen without relief. He states he is here requesting pain relief, mainly something to take at night, as his discomfort is causing him to not sleep. MD Complaint: joint swelling and joint pain Pain Consistency: constant Location: left, right and knee Relieving factors: immobilization Exacerbating factors: range of motion, weight bearing, walking and palpation Associated symptoms: Reports no associated symptoms; Deny chest pain, fever(s) or rash Review of Systems Const: Denies: fever(s), chills, body aches, fatigue or malaise Card: Denies: chest pain Resp: Denies: dyspnea GI: Denies: abdominal pain Musc: Reports: joint pain and joint swelling; Denies: neck pain, back pain, extremity pain or extremity swelling Skin/Breast: Denies: rash Neuro: Denies: headache(s), numbness in extremities, weakness in extremities or sensory changes [facility] ED PFSH: Medical History Panic disorder [episodic paroxysmal anxiety] Post-traumatic stress disorder, chronic Social History Smoking and tobacco status: current every day smoker Physical Exam Const: COMMON NORMALS: no acute distress, average body habitus, patient oriented x3, no limitations, healthy appearing, alert and well nourished Extremity: COMMON NORMALS: capillary refill normal, no clubbing, cyanosis or edema, no calf tenderness and no pedal edema GENERAL: Yes normal exam except as noted RIGHT LOWER EXTREMITY: Yes knee joint LEFT LOWER EXTREMITY: Yes knee joint Neuro: COMMON NORMALS: patient oriented x3, moves all extremities, no focal motor deficits, no sensory deficits noted and gait normal SENSORIUM/ORIENTATION: Yes alert Skin: COMMON NORMALS: no rashes or lesions noted GENERAL SKIN EXAM: no rashes or lesions noted TRAUMA: no lacerations or abrasions Course Vital Signs: Vital signs: Vital Signs Temperature 98.6 F 03/20/21 09:32 Pulse Rate 86 03/20/21 09:32 Respiratory Rate 18 03/20/21 09:32 Blood Pressure 145/90 03/20/21 09:32 Pulse Oximetry 97 03/20/21 09:32 MDM - Extremity (Nontraumatic) MDM Narrative: Medical decision making narrative: Verified appointment and he is scheduled to see Dr. Avendano on 04/01. He also told me he has an upcoming pain management appointment for the first week of April (I cannot find this appointment so we will have case management check and schedule him one if he does not already). I explained to patient that we normally do not prescribe controlled substances from the ED for chronic pain nor will we continue following this visit. I don't see any red flags on his history or presentation so will give him the benefit of the doubt and try to get him some relief. He states he would just like to take something to help with pain at night so he can get some rest. Discharge Plan Discharge Patient Disposition: Home Clinical Impression: Bilateral chronic knee pain Condition: Stable Prescriptions: Changed hydrocodone-acetaminophen 5-325 mg tablet 1 tab PO DAILY PRN (Reason: pain) Qty: 10 RF: 0 Discontinued hydrocodone-acetaminophen 5-325 mg tablet 1 tab PO Q6H PRN (Reason: pain) Qty: 12 RF: 0 No Action clonazepam 0.5 mg tablet 0.5 mg PO QID PRN (Reason: anxiety) Qty: 120 RF: 2 venlafaxine [Effexor XR] 150 mg capsule,extended release 24hr 150 mg PO DAILY Qty: 30 RF: 2 baclofen 10 mg tablet 10 mg PO BID PRN (Reason: muscle pain) Qty: 8 RF: 0 naproxen 500 mg tablet 500 mg PO BID 10 Days Qty: 20 RF: 0 prednisone 10 mg tablet 10 mg PO DAILY Qty: 14 RF: 0 Lidocaine Viscous 2 % solution 1 applic mucous membrane Q3H PRN (Reason: pain) Qty: 100 RF: 0 Discharge Orders: Discharge ED (Routine); Ordered 03/20/21 Ordered By: Shu Mireles Patient Instructions: Opioid Safety Activity Restrictions/Additional Instructions: [facility] is committed to fighting the nationwide opiate epidemic. We are providing ALL patients with information regarding opiate safety. If you received opiate pain medication during your stay or if you received a prescription for opiate pain medication-please review this handout. If not, you may disregard. Thank you. You are scheduled at orthopedics with Dr. Avendano on 04/01 at 2 PM. Make sure you attend this appointment for further evaluation of knee pain. As we discussed the ED will not prescribe any further opiate pain medication following this visit. I hope you begin to feel better soon. Coding Level of Care Code ED Process Treater for Ananth Pérez
--- NOTE | 2021-03-26 15:02 | DCPLANNER ---
sharepoint manager had message to look into patients pain management appointment. sharepoint manager called patient to discuss the appointment information, rn case mgr was unable to speak with patient or leave a voicemail for patient at this time.
== END 2021-03-20 10:33 | disposition home or self-care (01) ==
PROVIDERS: Emergency Provider Physician Assistant
DX: G89.29 Other chronic pain (principal); M25.562 Pain in left knee; M25.561 Pain in right knee; F17.210 Nicotine dependence, cigarettes, uncomplicated
CPT/HCPCS: 99281

== ENCOUNTER → 2021-05-08 11:22 | Outpatient (BNVA) | payer SELFPAY | PROVIDERS: Referring Provider Family Medicine; Visit Provider Orthopaedic Surgery | DX: M25.562 Pain in left knee (principal); M25.561 Pain in right knee; M25.861 Other specified joint disorders, right knee; M25.862 Other specified joint disorders, left knee; M25.761 Osteophyte, right knee; M25.762 Osteophyte, left knee | CPT/HCPCS: 73560; 73565 ==

== ENCOUNTER 2021-05-08 12:00 | Emergency (ER) | payer SELFPAY ==
[2021-05-08 12:09] VITALS: BP 112/81; PULSE 90; RESP 18; O2SAT 98; BMI 28.2
--- NOTE | 2021-05-08 12:35 | ED_ITS ---
HPI - Extremity Problem General: Chief complaint: Extremity Problem,Nontraumatic Stated complaint: BLE PAIN: SEEN TODAY AT ORTHO Time Seen by Provider: 05/08/21 12:17 History of Present Illness: HPI Narrative: Patient presents here immediately after appoint with orthopedic consult with Dr. Avendano. Patient was diagnosed with mild to moderate osteoarthritis knees. Patient asking for pain medication to take at night to help with his knee pain. Patient does not have a PCP established. MD Complaint: joint pain Onset (ago): year(s) Pain Consistency: intermittent Location: knee Severity scale (1-10): 3 Quality: aching Radiation: none Exacerbating factors: range of motion Associated symptoms: Reports no associated symptoms; Deny chest pain, fever(s) or rash Review of Systems Const: Denies: fever(s), chills or body aches Eyes: Denies: change in vision or blurry vision ENMT: Denies: throat pain or nasal congestion Card: Denies: chest pain or dyspnea on exertion Resp: Denies: dyspnea, productive cough or non-productive cough GI: Denies: abdominal pain, nausea or vomiting : Denies: difficulty urinating Musc: Denies: extremity pain Skin/Breast: Denies: rash Neuro: Denies: headache(s) Psych: Denies: anxiety or depression Lenard/Lymph: Denies: easy bruising PFSH ED PFSH: Medical History Nicotine dependence, cigarettes, uncomplicated Panic disorder [episodic paroxysmal anxiety] Post-traumatic stress disorder, chronic Psychiatric care Physical Exam Const: COMMON NORMALS: no acute distress GENERAL APPEARANCE: cooperative Resp: COMMON NORMALS: normal respiratory effort Psych: COMMON NORMALS: mental status grossly normal Course Vital Signs: Vital signs: Vital Signs Pulse Rate 90 05/08/21 12:09 Respiratory Rate 18 05/08/21 12:09 Blood Pressure 112/81 05/08/21 12:09 Pulse Oximetry 98 05/08/21 12:09 Discharge Plan Discharge Patient Disposition: Home Clinical Impression: Osteoarthritis, knee Qualifiers: Osteoarthritis type: primary Laterality: bilateral Qualified Code(s): M17.0 - Bilateral primary osteoarthritis of knee Condition: Stable Prescriptions: New Celebrex 400 mg capsule 400 mg PO .hs PRN (Reason: pain) Qty: 14 RF: 0 Voltaren Arthritis Pain 1 % gel 4 g topical QID Qty: 100 RF: 0 No Action clonazepam 0.5 mg tablet 0.5 mg PO QID PRN (Reason: anxiety) Qty: 120 RF: 2 venlafaxine [Effexor XR] 150 mg capsule,extended release 24hr 150 mg PO DAILY Qty: 30 RF: 2 naproxen 500 mg tablet 500 mg PO BID 10 Days Qty: 20 RF: 0 Lidocaine Viscous 2 % solution 1 applic mucous membrane Q3H PRN (Reason: pain) Qty: 100 RF: 0 Discharge Orders: Discharge ED (Routine); Ordered 05/08/21 Ordered By: Tj Potter Discharge Diet: Usual diet Discharge Activity: Resume usual activity Patient Instructions: Osteoarthritis (ED) Activity Restrictions/Additional Instructions: Follow-up [place] [facility] for further care and further prescription. Can alternate heat and ice to knees as needed. Keep appointment with Dr. Avendano as scheduled Coding Level of Care Code ED Electrical Instrument Repairer for Ananth Pérez
--- NOTE | 2021-05-09 15:28 | PC.SOCIAL ---
attempted to reach patient to set up with pcp. called 3 times and telegraphic typewriter operator wasn't successful. will try again tomorrow.
--- NOTE | 2021-05-10 12:04 | PC.SOCIAL ---
gag writer has called pt yesterday and today, voicemail left for patient to return call. gag writer trying to get pt established with pcp. will continue to try to contact pt.
--- NOTE | 2021-05-10 12:42 | PC.SOCIAL ---
Addendum entered by Kaelyn Calles RN 05/10/21 13:28: also spoke to patient about H financial assistance. pt reports he has the paperwork. typewriter assembly and parts inspector encouraged pt to fill out and if he needs assistance to call. typewriter assembly and parts inspector's # provided. Original Note: spoke with pt. pt reports he is filling for disability and doesn't want set up with pcp at this time. he states he is working with [facility] at this time. pt will return call to typewriter assembly and parts inspector if he needs a pcp set up.
== END 2021-05-08 12:30 | disposition home or self-care (01) ==
LOC: ER 12:33
PROVIDERS: Emergency Provider Nurse Practitioner Family
DX: M17.0 Bilateral primary osteoarthritis of knee (principal); F17.210 Nicotine dependence, cigarettes, uncomplicated
CPT/HCPCS: 99282

== ENCOUNTER 2021-09-11 23:57 | Emergency (ER) | payer SELFPAY ==
[2021-09-12 00:34] VITALS: BP 124/90; PULSE 78; RESP 20; TEMP 36.7; O2SAT 96; BMI 28.5
--- NOTE | 2021-09-12 01:39 | ED_ITS ---
HPI - Extremity Problem General: Chief complaint: General Medical Stated complaint: pain in R leg. Time Seen by Provider: 09/12/21 01:24 Source: patient Mode of arrival: ambulatory Limitations: no limitations History of Present Illness: Patient is a 46-year-old male who presents to ED today with a complaint of right knee pain. Patient tells me he has chronic pain in the knee and has been diagnosed with severe osteoarthritis previously. He states he saw Dr. Avendano in May who stated eventually he would require TKA but certainly was hesitant about this given his age. Patient states he had been doing okay rating his pain constantly at a 5-7. He states over the past few weeks he feels like pain has worsened. He states he has a follow-up appoint with Dr. Avendano in one week for re-evaluation. Patient is not had any new injuries or trauma. Patient has been taking 800mg Ibuprofen at home without much relief. States he hasn't slept in two day secondary to pain worsening at night. MD Complaint: joint swelling and joint pain Onset (ago): year(s) Pain Consistency: constant Location: right and lower extremity Severity scale (1-10): 10 Quality: constant Radiation: proximal Relieving factors: nothing Exacerbating factors: range of motion, weight bearing and walking Associated symptoms: Reports no associated symptoms; Deny chest pain, fever(s) or rash Review of Systems Const: Denies: fever(s), chills, body aches, fatigue or malaise Card: Denies: chest pain Resp: Denies: dyspnea Musc: Reports: joint pain (R knee) and joint swelling (R knee); Denies: joint redness Skin/Breast: Denies: rash, new lesions or changes in skin color Neuro: Denies: numbness in extremities, weakness in extremities or sensory changes PFS ED PFSH: Medical History Nicotine dependence, cigarettes, uncomplicated Panic disorder [episodic paroxysmal anxiety] Post-traumatic stress disorder, chronic Psychiatric care Physical Exam Const: COMMON NORMALS: no acute distress, patient oriented x3, no limitations and alert Extremity: GENERAL: Yes normal exam except as noted RIGHT LOWER EXTREMITY: Yes knee joint (TTP throughout joint; mild swelling/effusion) Right knee: Yes neurovascular exam (normal) Neuro: COMMON NORMALS: patient oriented x3, moves all extremities, no focal motor deficits and no sensory deficits noted SENSORIUM/ORIENTATION: Yes alert Skin: COMMON NORMALS: no rashes or lesions noted GENERAL SKIN EXAM: no rashes or lesions noted Course Vital Signs: Vital signs: Vital Signs Temperature 98.1 F 09/12/21 00:34 Pulse Rate 78 09/12/21 00:34 Respiratory Rate 20 H 09/12/21 00:34 Blood Pressure 124/90 09/12/21 00:34 Pulse Oximetry 96 09/12/21 00:34 MDM - Extremity (Nontraumatic) Medical Decision Making Patient was instructed to get a PCP and follow up with them in addition to his appointments with orthopedics. Will give 10 tramadol and he can take one a night to help him sleep. Told patient we will not do any further controlled medications for chronic pains. Discharge Plan Discharge Patient Disposition: Home Clinical Impression: Osteoarthritis of knees, bilateral Condition: Stable Prescriptions: New tramadol 50 mg tablet 50 mg PO Q8H PRN (Reason: pain) Qty: 10 0RF No Action venlafaxine [Effexor XR] 150 mg capsule,extended release 24hr 150 mg PO DAILY Qty: 30 2RF clonazepam 0.5 mg tablet 0.5 mg PO QID PRN (Reason: anxiety) Qty: 120 2RF naproxen 500 mg tablet 500 mg PO BID 10 Days Qty: 20 0RF Rx Instructions: 540b Lidocaine Viscous 2 % solution 1 applic mucous membrane Q3H PRN (Reason: pain) Qty: 100 0RF Celebrex 400 mg capsule 400 mg PO .hs PRN (Reason: pain) Qty: 14 0RF Voltaren Arthritis Pain 1 % gel 4 g topical QID Qty: 100 0RF Rx Instructions: apply to single knee, ankle, foot; for foot includes sole/toes/top of foot Discharge Orders: Discharge ED (Routine); Ordered 09/12/21 Ordered By: Shu Mireles Coding Level of Care Code ED Business Administration Program Chair for Ananth Pérez
[2021-09-12] MEDS: TRAMadol 50 mg Tablet PO (01:45)
== END 2021-09-12 01:49 | disposition home or self-care (01) ==
PROVIDERS: Emergency Provider Physician Assistant
DX: M17.0 Bilateral primary osteoarthritis of knee (principal); F17.210 Nicotine dependence, cigarettes, uncomplicated
CPT/HCPCS: 99282

== ENCOUNTER 2021-10-27 22:56 | Emergency (ER) | payer SELFPAY ==
[2021-10-27 23:16] VITALS: BP 120/76; PULSE 78; RESP 18; TEMP 37; O2SAT 98; BMI 28.5
--- NOTE | 2021-10-27 23:23 | ED_ITS ---
HPI - Dental/Oral General: Chief complaint: Dental/Oral Stated complaint: tooth pain Time Seen by Provider: 10/27/21 22:59 History of Present Illness: Patient is a 46-year-old male who comes to the ED with dental pain. Dental pain is located at left back molar. He rates his pain currently a 9 out of 10 and says he has not been able to get any sleep. He has been taking an antibiotic and scheduled to see his dentist this coming Thursday to have tooth pulled. Associated symptoms: Denies fever(s) or odynophagia Review of Systems Const: Denies: fever(s), chills or fatigue Eyes: Denies: change in vision or eye discomfort ENMT: Reports: dental pain; Denies: throat pain, odynophagia, nasal discharge or nasal congestion Card: Denies: chest pain, palpitations, edema, swelling of feet/ankles, dyspnea on exertion or orthopnea Resp: Denies: dyspnea, productive cough or non-productive cough GI: Denies: abdominal pain, nausea, vomiting, diarrhea, constipation or hematochezia : Denies: flank pain, difficulty urinating, dysuria or hematuria Musc: Denies: neck pain, back pain or extremity swelling Skin/Breast: Denies: rash or new lesions Neuro: Denies: headache(s), numbness in extremities or weakness in extremities PFSH ED PFSH: Medical History Nicotine dependence, cigarettes, uncomplicated Panic disorder [episodic paroxysmal anxiety] Post-traumatic stress disorder, chronic Psychiatric care Physical Exam Const: COMMON NORMALS: patient oriented x3 and alert GENERAL APPEARANCE: cooperative HENMT: COMMON NORMALS: normocephalic HEAD & SCALP: normocephalic MOUTH: Normal oral and palatal mucosa present TEETH & GINGIVA: Yes abnormal tooth and associated gingiva (Lower left third molar has extensive decay) lower left third molar tender and Yes poor dentition THROAT: posterior oropharynx normal and uvula midline Neck/C-Spine: COMMON NORMALS: supple GENERAL: Yes normal visual inspection Resp: COMMON NORMALS: normal respiratory effort, No retractions, No use of accessory muscles and clear to auscultation bilaterally AUSCULTATION: clear to auscultation bilaterally Cardio: COMMON NORMALS: regular rate, regular rhythm, S1 normal heart sound present, S2 normal heart sound present, No gallops present (Cardio), No clicks present (Cardio), No murmurs present (Cardio) and Peripheral pulses 2+ throughout RATE: regular rate RHYTHM: regular rhythm HEART SOUNDS: S1 normal heart sound present and S2 normal heart sound present PERIPHERAL PULSES: Peripheral pulses 2+ throughout GI: COMMON NORMALS: Normal to inspection, nondistended, normoactive bowel sounds present, Soft to palpation, non-tender and no masses PALPATION: Yes Soft to palpation : COMMON NORMALS: Yes no CVA tenderness BLADDER/KIDNEY EXAM: Yes no CVA tenderness Back/Pelvis: COMMON NORMALS: no CVA tenderness Extremity: COMMON NORMALS: normal to inspection Neuro: COMMON NORMALS: patient oriented x3 and moves all extremities SENSORIUM/ORIENTATION: Yes alert Skin: GENERAL SKIN EXAM: dry skin Course Vital Signs: Vital signs: Vital Signs Temperature 98.6 F 10/27/21 23:16 Pulse Rate 78 10/27/21 23:16 Respiratory Rate 18 10/27/21 23:16 Blood Pressure 120/76 10/27/21 23:16 Pulse Oximetry 98 10/27/21 23:16 [facility] - Dental/Oral Medical Decision Making Patient is a 46-year-old male comes to the ED with dental pain. He is currently on an antibiotic for dental pain and has an appointment to have tooth removed with dentist this coming Thursday. Vitals are stable. Patient's left third lower third molar has extensive dental decay and tenderness. He was diagnosed with dental pain and sent home with a prescription for Celebrex for pain. He was told to follow-up with his dentist at his scheduled appointment this coming Thursday for further management of dental pain. Patient understood and agreed with plan. Discharge Plan Discharge Patient Disposition: Home Clinical Impression: Pain, dental Condition: Stable Prescriptions: New Celebrex 100 mg capsule 100 mg PO BID PRN (Reason: pain) Qty: 20 0RF No Action clonazepam 0.5 mg tablet 0.5 mg PO QID PRN (Reason: anxiety) Qty: 120 2RF venlafaxine [Effexor XR] 150 mg capsule,extended release 24hr 150 mg PO DAILY Qty: 30 2RF Discharge Orders: Discharge ED (Routine); Ordered 10/27/21 Ordered By: Seven Coleman Discharge Diet: Regular Discharge Activity: Increase activity as tolerated Patient Instructions: Toothache (ED), Opioid Safety Activity Restrictions/Additional Instructions: Follow-up with your dentist at your scheduled appointment this coming week. Take medications as prescribed. Return to the ER or your medical provider if condition worsens. Please read and understand discharge instructions. Thank you for choosing [facility] for your healthcare needs today. Please realize this is an emergency room and that we are providing you with a medical screening exam and this may not be complete and all inclusive of all the testing and or work up that you may need to determine your ailment or severity of your illness. It is very important that you follow up as instructed or that you return to the Emergency Department should you have concerns or if your condition changes or worsens in any way. Coding Level of Care Code ED Assistant Chief Nursing Officer for Ananth Pérez Exam Comprehensive
[2021-10-27] MEDS: HYDROcodone-acetaminophen 5-325 mg Tablet 2 TAB PO (23:44)
== END 2021-10-27 23:55 | disposition home or self-care (01) ==
PROVIDERS: Emergency Provider Physician Assistant
DX: K08.89 Other specified disorders of teeth and supporting structures (principal)
CPT/HCPCS: 99283

== ENCOUNTER 2022-01-13 22:14 | Emergency (ER) | payer SELFPAY ==
[2022-01-13 22:48] VITALS: PULSE 80; RESP 16; TEMP 36.6; O2SAT 98; BMI 28.2
--- NOTE | 2022-01-13 23:10 | ED_ITS ---
HPI - Dental/Oral General: Chief complaint: Dental/Oral Stated complaint: Tooth pain Time Seen by Provider: 01/13/22 22:58 Source: patient Mode of arrival: ambulatory Limitations: no limitations History of Present Illness: Patient is a 46-year-old male who presents to ED today with a complaint of left lower dental pain. Patient states he has had fairly significant pain over the past 2 to 3 days. He states he has been doing Tylenol, Motrin, Orajel, and crushing aspirin on the tooth with very minimal relief of his symptoms. Patient states he has an appointment next week to get all of his lower teeth pulled and get surgical fixation screws placed for dental prosthesis later. Patient has not noticed any facial or neck swelling. He is eating and drinking and controlling secretions normally. No difficulty swallowing or breathing. MD Complaint: tooth pain Teeth map: 1. Onset (ago): day(s) Duration: constant Severity: severe Relieving factors: nothing Exacerbating factors: nothing Context: history of dental caries Associated symptoms: Reports no associated symptoms; Denies fever(s) or odynophagia Treatment prior to arrival: topical analgesic and oral analgesic Review of Systems Const: Denies: fever(s), chills, body aches, fatigue or malaise Eyes: Denies: change in vision ENMT: Reports: dental pain; Denies: throat pain, odynophagia, hoarseness, swelling of lips/tongue or oral sores Card: Denies: chest pain Resp: Denies: dyspnea GI: Denies: abdominal pain Musc: Denies: neck pain Neuro: Denies: headache(s) [facility] ED PFSH: Medical History Nicotine dependence, cigarettes, uncomplicated Panic disorder [episodic paroxysmal anxiety] Post-traumatic stress disorder, chronic Psychiatric care Social History Smoking and tobacco status: current every day smoker cigarettes Packs smoked per day: 2 Physical Exam Const: COMMON NORMALS: no acute distress, patient oriented x3, no limitations and alert GENERAL APPEARANCE: cooperative ORIENTATION/CONSCIOUSNESS: Yes awake, Yes oriented to person, Yes oriented to place and Yes oriented to time HENMT: COMMON NORMALS: normocephalic and atraumatic HEAD & SCALP: normal to inspection, normocephalic and atraumatic FACE & SINUS: normal facial exam and sinuses nontender; no erythema and no edema MOUTH: Normal oral and palatal mucosa present, lip normal, tongue normal and other (floor of mouth is soft and non-raised ) TEETH & GINGIVA: Yes dentures (top), Yes poor dentition (throughout lower dentition) and Yes other (widespread periodontal disease) TEETH & GINGIVA IMAGES: 1. severe decay throughout molars; gingival disease and inflammation; no obvious abscess present THROAT: posterior oropharynx normal, tonsils normal and uvula midline Neck/C-Spine: COMMON NORMALS: full ROM and no lymphadenopathy GENERAL: Yes normal visual inspection, No anterior neck swelling and No submandibular swelling Resp: COMMON NORMALS: normal respiratory effort and clear to auscultation bilaterally AUSCULTATION: clear to auscultation bilaterally Cardio: COMMON NORMALS: regular rate and regular rhythm RATE: regular rate RHYTHM: regular rhythm Neuro: COMMON NORMALS: patient oriented x3 SENSORIUM/ORIENTATION: Yes alert, Yes oriented to person, Yes oriented to place and Yes oriented to time Course Vital Signs: Vital signs: Vital Signs Temperature 97.8 F 01/13/22 22:48 Pulse Rate 80 01/13/22 22:48 Respiratory Rate 16 01/13/22 22:48 Pulse Oximetry 98 01/13/22 22:48 Oxygen Delivery Me thod 01/13/22 22:48 MDM - Dental/Oral Medical Decision Making Patient will be given a prescription for antibiotics and recommend he follow up with dentist/oral surgeon next week as scheduled. He is asking for pain medication. I told him we do not routinely write for controlled substances for dental pain from ED. He was provided 3 tabs hydrocodone here with instructions to take at home for severe pain only. He will not be given a prescription for this. Discharge Plan Discharge Patient Disposition: Home Clinical Impression: Dental caries, Toothache Condition: Stable Prescriptions: New penicillin V potassium 500 mg tablet 500 mg PO Q8H 7 Days Qty: 21 0RF No Action clonazepam 0.5 mg tablet 0.5 mg PO QID PRN (Reason: anxiety) Qty: 120 2RF venlafaxine [Effexor XR] 150 mg capsule,extended release 24hr 150 mg PO DAILY Qty: 30 2RF Discharge Orders: Discharge ED (Routine); Ordered 01/13/22 Ordered By: Shu Mireles Patient Instructions: Dental Caries (Cavities), Toothache (ED) Coding Level of Care Code ED Firebrick And Refractory Tile Repairer for Ananth Pérez
[2022-01-13] MEDS: HYDROcodone-acetaminophen 5-325 mg Tablet 3 TAB PO (23:42)
== END 2022-01-13 23:45 | disposition home or self-care (01) ==
PROVIDERS: Emergency Provider Physician Assistant
DX: K02.9 Dental caries, unspecified (principal); F17.210 Nicotine dependence, cigarettes, uncomplicated
CPT/HCPCS: 99283

== ENCOUNTER 2022-01-22 14:39 | Emergency (ER) | payer SELFPAY ==
[2022-01-22 15:07] VITALS: BP 121/78; PULSE 78; RESP 18; TEMP 36.7; O2SAT 97; BMI 26.8
--- NOTE | 2022-01-22 15:12 | W.ED.DENTAL ---
HPI - Dental/Oral General: Chief complaint: Dental/Oral Stated complaint: Tooth pain Time Seen by Provider: 01/22/22 15:12 Source: patient Mode of arrival: ambulatory Limitations: no limitations History of Present Illness: Patient is a 46-year-old male who presents to ED today for complaint of left lower dental pain. Patient has been seen for this complaint previously. He reportedly had a dental appointment for extraction on Thursday but was rescheduled because some of the staff was out with [employer]. He states his new scheduled appointment is for 01/29. Patient here wanting something for pain. MD Complaint: tooth pain Teeth map: 1. Onset (ago): day(s) Duration: constant Severity: severe Relieving factors: nothing Exacerbating factors: chewing Context: history of dental caries Associated symptoms: Reports no associated symptoms; Denies fever(s) or odynophagia Treatment prior to arrival: topical analgesic and oral analgesic Review of Systems Const: Denies: fever(s), chills, body aches, fatigue or malaise ENMT: Reports: dental pain; Denies: throat pain, odynophagia, hoarseness, mouth pain, swelling of lips/tongue, oral sores, bleeding gums, dry mouth or halitosis Card: Denies: chest pain Resp: Denies: dyspnea GI: Denies: nausea or vomiting Musc: Denies: neck pain Skin/Breast: Denies: rash Neuro: Denies: headache(s) [facility] ED PFSH: Medical History Nicotine dependence, cigarettes, uncomplicated Panic disorder [episodic paroxysmal anxiety] Post-traumatic stress disorder, chronic Psychiatric care Social History Smoking and tobacco status: current every day smoker cigarettes Packs smoked per day: 2 Physical Exam Const: COMMON NORMALS: no acute distress, no limitations and alert HENMT: COMMON NORMALS: normocephalic and atraumatic HEAD & SCALP: normal to inspection, normocephalic and atraumatic FACE & SINUS: normal facial exam MOUTH: Normal oral and palatal mucosa present, lip normal and tongue normal TEETH & GINGIVA: Yes poor dentition and Yes other (widespread dental caries; no obvious abscess formation ) THROAT: posterior oropharynx normal, tonsils normal and uvula midline Neck/C-Spine: COMMON NORMALS: no lymphadenopathy GENERAL: No anterior neck swelling and No submandibular swelling Neuro: SENSORIUM/ORIENTATION: Yes alert Course Vital Signs: Vital signs: Vital Signs Temperature 98.1 F 01/22/22 15:07 Pulse Rate 78 01/22/22 15:07 Respiratory Rate 18 01/22/22 15:07 Blood Pressure 121/78 01/22/22 15:07 Pulse Oximetry 97 01/22/22 15:07 Oxygen Delivery Me thod 01/22/22 15:07 MDM - Dental/Oral Medical Decision Making Patient here for dental pain. Looking at previous documentation patient has been here multiple times for dental pain. I have personally seen patient at least 3 or 4 times now from the emergency department and at every visit he always requests pain medication. At this point I do suspect some drug-seeking behavior. Last time I saw him for dental pain I discharged him with 3 hydrocodone to go home with and told him I would not write for a prescription or provide any further narcotic pain medications for dental pain. I explained this to him today and that he needs to follow up with his PCP and/or dentist but continuing to return to ED for dental pain is inappropriate. I will give him a RX for Celebrex that he can try. Discharge Plan Discharge Patient Disposition: Home Clinical Impression: Toothache, Dental caries Condition: Stable Prescriptions: New Celebrex 100 mg capsule 100 mg PO BID Qty: 14 0RF No Action clonazepam 0.5 mg tablet 0.5 mg PO QID PRN (Reason: anxiety) Qty: 120 2RF venlafaxine [Effexor XR] 150 mg capsule,extended release 24hr 150 mg PO DAILY Qty: 30 2RF Discharge Orders: Discharge ED (Routine); Ordered 01/22/22 Ordered By: Shu Mireles Coding Level of Care Code ED Drafting Layout Man for Javong Beto
[2022-01-22 15:30] VITALS: BP 121/78; PULSE 78; RESP 18; TEMP 36.7; O2SAT 97
[2022-01-22] MEDS: acetaminophen-codeine 300-30mg Tablet 1 TAB PO (15:37)
== END 2022-01-22 15:38 | disposition home or self-care (01) ==
PROVIDERS: Emergency Provider Physician Assistant
DX: K02.9 Dental caries, unspecified (principal); F17.210 Nicotine dependence, cigarettes, uncomplicated
CPT/HCPCS: 99283

== ENCOUNTER 2022-04-09 18:50 | Emergency (ER) | payer SELFPAY ==
[2022-04-09 19:28] VITALS: BMI 28.2
[2022-04-09 19:32] VITALS: BP 108/75; PULSE 83; RESP 15; TEMP 36.6; O2SAT 97
--- NOTE | 2022-04-09 20:10 | ED_ITS ---
HPI - Back Pain/Injury General: Chief Complaint: Back Pain/Injury Stated Complaint: Lower Back Pain Clinic Sent Time Seen by Provider: 04/09/22 20:06 History of Present Illness: 46-year-old male patient comes in today for complaints of low back pain. On Thursday patient was cutting down a tree using a ax and had sudden sharp pain while swinging the ax causing him to fall. Patient was evaluated in the emergency department at [facility]. Was diagnosed with lumbar pain and no signs of fracture on x-rays. Patient was recommended to follow-up with primary care. Patient appears nontoxic. Patient appears in mild pain. Associated symptoms: Deny fever(s) Review of Systems Const: Denies: fever(s) Card: Denies: chest pain Resp: Denies: dyspnea Musc: Reports: back pain [facility] ED PFSH: Medical History Nicotine dependence, cigarettes, uncomplicated Panic disorder [episodic paroxysmal anxiety] Post-traumatic stress disorder, chronic Psychiatric care Social History Smoking and tobacco status: current every day smoker cigarettes Packs smoked per day: 2 Physical Exam Const: COMMON NORMALS: alert HENMT: COMMON NORMALS: normocephalic HEAD & SCALP: normocephalic Neck/C-Spine: COMMON NORMALS: full ROM Resp: COMMON NORMALS: normal respiratory effort Cardio: COMMON NORMALS: regular rate RATE: regular rate Back/Pelvis: THORACIC SPINE/UPPER BACK: Yes normal to inspection LUMBAR SPINE/LOWER BACK: Yes lumbar spinal tenderness and Yes paraspinal muscle tenderness Extremity: COMMON NORMALS: normal to inspection and full ROM Neuro: SENSORIUM/ORIENTATION: Yes alert Skin: COMMON NORMALS: turgor normal GENERAL SKIN EXAM: turgor normal Course Vital Signs: Vital signs: Vital Signs Temperature 97.9 F 04/09/22 19:32 Pulse Rate 83 04/09/22 19:32 Respiratory Rate 15 04/09/22 19:32 Blood Pressure 108/75 04/09/22 19:32 Pulse Oximetry 97 04/09/22 19:32 Oxygen Delivery Me thod 04/09/22 19:32 MDM - Back Pain/Injury Medical Decision Making Patient comes in for persistent back pain. On exam patient has tenderness of the paraspinous muscles and central spine of the lower lumbar. Moves all extremities well. Normal sensation distal extremities. No signs of cauda equina syndrome. Differential diagnosis includes facet arthropathy, lumbar strain, intervertebral disc disease. Reviewed exam with patient with recommendations for treatment follow-up or return to the ER. Patient reported understanding agreed to plan. Patient was given a short course of hydrocodone and recommended to use 800 ibuprofen twice a day. Patient stated understanding and agreed to plan. Discharge Plan Discharge Patient Disposition: Home Clinical Impression: Strain of lumbar region Condition: Stable Prescriptions: New hydrocodone-acetaminophen 5-325 mg tablet 1 tab PO Q8H PRN (Reason: pain (scale score 7-10)) Qty: 7 0RF No Action clonazepam 0.5 mg tablet 0.5 mg PO QID PRN (Reason: anxiety) Qty: 120 2RF venlafaxine [Effexor XR] 150 mg capsule,extended release 24hr 150 mg PO DAILY Qty: 30 2RF Discharge Orders: Discharge ED (Routine); Ordered 04/09/22 Ordered By: Beni Ge Discharge Diet: Usual diet Discharge Activity: Increase activity as tolerated Patient Instructions: Back Pain (ED), Opioid Safety Activity Restrictions/Additional Instructions: Use 800 mg ibuprofen 1 tablet twice a day routinely for pain and inflammation. Use hydrocodone 1 tablet 3 times a day for breakthrough pain. Use acetaminophen 1000 mg 3 times a day as needed for further pain relief. Drink plenty of water with medications. Gentle stretching and range of motion exercises. Use ice and heat for further pain relief. Follow-up with primary care for further instructions and evaluation. Coding Level of Care Code ED Scan Coordinator for Ananth Pérez
[2022-04-09] MEDS: HYDROcodone-acetaminophen 5-325 mg Tablet 2 TAB PO (20:24)
== END 2022-04-09 20:26 | disposition home or self-care (01) ==
PROVIDERS: Emergency Provider Nurse Practitioner Family
DX: S39.012A Strain of muscle, fascia and tendon of lower back, initial encounter (principal); F17.210 Nicotine dependence, cigarettes, uncomplicated; X50.9XXA Other and unspecified overexertion or strenuous movements or postures, initial encounter
CPT/HCPCS: 99283

== ENCOUNTER 2022-05-30 15:48 | Emergency (ER) | payer SELFPAY ==
[2022-05-30 16:14] VITALS: BP 120/78; PULSE 77; RESP 18; TEMP 36.9; O2SAT 98; BMI 27.4
--- NOTE | 2022-05-30 17:06 | ED_ITS ---
HPI - Extremity Problem General: Chief complaint: Extremity Injury, Lower Stated complaint: knee pain Time Seen by Provider: 05/30/22 17:06 History of Present Illness: Mr. Barnett is a 46-year-old gentleman with history of chronic pain presenting to the emergency room due to continued knee pain after falling off a ladder. He has been ambulatory involves 3 days ago. Denies new sensory or motor changes however has had just increased pain which is made it difficult to sleep. Is plan for outpatient management. Density symptoms is moderate to severe but course has persisted. No signs or symptoms or reported concerns for infected joint. No other specific changes in health, exacerbating, or alleviating factors identified. Review of Systems General: Reports: 10 or more systems reviewed and unremarkable except in HPI and below PFSH ED PFSH: Medical History Nicotine dependence, cigarettes, uncomplicated Panic disorder [episodic paroxysmal anxiety] Post-traumatic stress disorder, chronic Psychiatric care Social History Smoking and tobacco status: current every day smoker cigarettes Packs smoked per day: 2 Physical Exam Const: COMMON NORMALS: alert GENERAL APPEARANCE: cooperative and well developed HENMT: COMMON NORMALS: normocephalic and atraumatic HEAD & SCALP: normocephalic and atraumatic Eye: COMMON NORMALS: conjunctivae normal CONJUNCTIVA: Yes conjunctivae normal SCLERA: sclerae normal Neck/C-Spine: COMMON NORMALS: supple GENERAL: Yes trachea midline Resp: COMMON NORMALS: clear to auscultation bilaterally EFFORT & INSPECTION: Yes able to speak in complete sentences AUSCULTATION: clear to auscultation bilaterally Cardio: COMMON NORMALS: regular rate and regular rhythm RATE: regular rate RHYTHM: regular rhythm GI: COMMON NORMALS: Soft to palpation PALPATION: Yes Soft to palpation and No Tenderness to palpation present (GI) Extremity: NARRATIVE EXTREMITY EXAM: Tenderness to palpation without overlying skin changes or warmth, distal CMS intact. GENERAL: Yes normal exam except as noted and No edema Neuro: COMMON NORMALS: moves all extremities SENSORIUM/ORIENTATION: Yes alert and No Orientation impaired Psych: COMMON NORMALS: mental status grossly normal and Normal thought process present THOUGHT PROCESS: Normal thought process present Course Vital Signs: Vital signs: Vital Signs Temperature 98.5 F 05/30/22 16:14 Pulse Rate 77 05/30/22 16:14 Respiratory Rate 18 05/30/22 16:14 Blood Pressure 120/78 05/30/22 16:14 Pulse Oximetry 98 05/30/22 16:14 Oxygen Delivery Me thod 05/30/22 16:14 MDM - Extremity (Nontraumatic) Medical Decision Making 46-year-old gentleman presenting with concern over acute on chronic knee pain after fall. Patient has been ambulatory and physical exam is not concerning for acute pathology requiring laboratory studies or x-rays. Patient primary concern is pain which is made difficult to sleep. He does not plan for outpatient follow-up. Patient went through prescription monitoring program, no frequent prescriptions reported. The results of ED evaluation were discussed with the patient including prescriptions and/or symptomatic cares (if applicable) including appropriate and responsible use, followup plan, and return precautions. The patient verbalized understanding and felt safe for discharge. Medical Records I reviewed the patient's medical records. Lab Data I reviewed the patient's lab results. Discharge Plan Discharge Patient Disposition: Home Clinical Impression: Bilateral knee pain Condition: Stable Prescriptions: New hydrocodone-acetaminophen 5-325 mg tablet 1 tab PO .nightly PRN (Reason: pain) Qty: 10 0RF No Action clonazepam 0.5 mg tablet 0.5 mg PO QID PRN (Reason: anxiety) Qty: 120 2RF Discharge Orders: Discharge ED (Routine); Ordered 05/30/22 Ordered By: Jorge Maldonado Discharge Diet: Usual diet Discharge Activity: Resume usual activity Patient Instructions: Knee Pain (ED), Opioid Safety, Pain Management Activity Restrictions/Additional Instructions: Thank you for visiting the emergency department. You were seen and evaluated for acute on chronic knee pain. Please continue your plan for outpatient management. You may use qguc-kud-ybhjyty medications such as acetaminophen and ibuprofen for pain however please do not exceed the daily recommended dosage as listed on the packaging and please keep in mind that many namebrand medications contain the same active ingredients. Please avoid these medications if previously instructed to do so by another physician due to other underlying medical condition. Please keep in mind that the hydrocodone has 325 mg of acetaminophen in it per tablet and this has to be included in total maximum dose per day. Return to the emergency department for uncontrolled symptoms or anything else that you are concerned about a feel needs emergency department evaluation. Coding Level of Care Code ED Certified Medical Aide for Chg Fwd
== END 2022-05-30 17:51 | disposition home or self-care (01) ==
PROVIDERS: Emergency Provider Emergency Medicine
DX: M25.562 Pain in left knee (principal); M25.561 Pain in right knee; F17.210 Nicotine dependence, cigarettes, uncomplicated
CPT/HCPCS: 99283

== ENCOUNTER 2022-07-15 07:00 | Emergency (ER) | payer SELFPAY ==
[2022-07-15 07:13] VITALS: BP 130/94; PULSE 99; RESP 18; TEMP 36.5; O2SAT 99; BMI 27.3
--- NOTE | 2022-07-15 07:24 | W.ED.EXTPRO ---
HPI - Extremity Problem General: Chief complaint: Extremity Injury, Lower Stated complaint: right knee/back pain Time Seen by Provider: 07/15/22 07:08 Source: patient Mode of arrival: ambulatory Limitations: no limitations History of Present Illness: Patient is a 46-year-old male well-known to myself here for complaints of right knee pain. Patient has chronic bilateral knee pain that he has been told is secondary to osteoarthritis. Patient states he started a new job recently and is now on his feet for longer periods of time thus exacerbating his knee pain. He is requesting something for pain just to get me by until his insurance kicks in next week and he can establish with primary care. MD Complaint: joint pain Onset (ago): day(s) Pain Consistency: constant Location: right and knee Radiation: none Relieving factors: nothing Exacerbating factors: weight bearing and walking Associated symptoms: Reports no associated symptoms; Deny fever(s) Review of Systems Const: Denies: fever(s), chills or body aches Musc: Reports: joint pain (R knee); Denies: neck pain, back pain, extremity pain, extremity swelling, joint swelling, joint redness, joint warmth or joint stiffness Neuro: Denies: numbness in extremities, weakness in extremities, sensory changes or difficulty walking PENDING SALE TO [facility] ED PFSH: Medical History Nicotine dependence, cigarettes, uncomplicated Panic disorder [episodic paroxysmal anxiety] Post-traumatic stress disorder, chronic Psychiatric care Social History Smoking and tobacco status: current every day smoker cigarettes Packs smoked per day: 2 Physical Exam Const: COMMON NORMALS: no acute distress, patient oriented x3, no limitations, alert and well nourished Extremity: COMMON NORMALS: full ROM, capillary refill normal, no joint enlargement, no clubbing, cyanosis or edema, no calf tenderness and no pedal edema GENERAL: Yes normal exam except as noted RIGHT LOWER EXTREMITY: Yes knee joint (no swelling/effusion present; no redness/warmth) Right knee: Yes ROM (normal) and Yes neurovascular exam (normal) Neuro: COMMON NORMALS: patient oriented x3 SENSORIUM/ORIENTATION: Yes alert Course Vital Signs: Vital signs: Vital Signs Temperature 97.7 F 07/15/22 07:13 Pulse Rate 99 07/15/22 07:13 Respiratory Rate 18 07/15/22 07:13 Blood Pressure 130/94 07/15/22 07:13 Pulse Oximetry 99 07/15/22 07:13 Oxygen Delivery Me thod 07/15/22 07:13 MDM - Extremity (Nontraumatic) Medical Decision Making I have seen patient here in our emergency department on several previous visits for knee pains and dental pains. On every single visit patient asks for pain medication specifically hydrocodone. When I have told patient I am not willing to write him for narcotic pain medication/hydrocodone for his chronic pain he then goes step loja down the list of other controlled pain medications in which he would like me to write him for. I told him I am not writing him for anything controlled at this time. His knee pain is chronic in nature. Maybe exacerbated by being on his feet for longer periods of time with his new job but certainly I don't see an indication for narcotic pain meds. I will try Celebrex and a Medrol dose pack. Shortly after I saw patient, RN alerted me that he eloped from the ED without discharge papers/prescriptions. Discharge Plan Discharge Patient Disposition: Home Clinical Impression: Chronic pain of right knee Condition: Stable Prescriptions: New Celebrex 100 mg capsule 100 mg PO BID Qty: 14 0RF Medrol (Mario) 4 mg tablets,dose pack See Rx Instructions .ROUTE .COMPLEX Qty: 21 0RF Rx Instructions: orally per package directions Discontinued hydrocodone-acetaminophen 5-325 mg tablet 1 tab PO .nightly PRN (Reason: pain) Qty: 10 0RF No Action clonazepam 0.5 mg tablet 0.5 mg PO QID PRN (Reason: anxiety) Qty: 120 2RF Discharge Orders: Discharge ED (Routine); Ordered 07/15/22 Ordered By: Shu Mireles Activity Restrictions/Additional Instructions: As we discussed I will place your information and with case management to get you a primary care provider referral. As we discussed you may try a neoprene knee sleeves to help with discomfort if you are on your feet for long periods of time. Coding Level of Care Code ED Atv Mechanic for Ananth Pérez
== END 2022-07-15 07:37 | disposition home or self-care (01) ==
PROVIDERS: Emergency Provider Physician Assistant
DX: G89.29 Other chronic pain (principal); M25.561 Pain in right knee; F17.210 Nicotine dependence, cigarettes, uncomplicated
CPT/HCPCS: 99283

== ENCOUNTER 2022-08-13 12:14 | Emergency (ER) | payer SELFPAY ==
[2022-08-13 12:36] VITALS: BP 123/87; PULSE 80; RESP 17; TEMP 36.4; O2SAT 96; BMI 32.1
--- NOTE | 2022-08-13 13:48 | W.ED.EXTPRO ---
HPI - Extremity Problem General: Chief complaint: Back Pain/Injury Stated complaint: back/knee pain Time Seen by Provider: 08/13/22 13:32 Source: patient Mode of arrival: ambulatory Limitations: no limitations History of Present Illness: Patient is a 47-year-old male who presents to ED today yet again for bilateral chronic knee pain requesting opiate pain medication. I have seen patient countless times for the same complaint. It always seems to be the exact same story-he request pain medication just to get me by till he sees primary care and/or orthopedics. I have offered him several other medications on previous visits but patient always declines. States he just started a new job and is on his feet more often (this was same story last time but states this is a different new job-last time it was the [employer] but he left there and is now starting at [employer]). Complaint: joint pain Onset (ago): year(s) Pain Consistency: constant Location: left, right and lower extremity Radiation: none Relieving factors: nothing Exacerbating factors: nothing Associated symptoms: Reports no associated symptoms Review of Systems Musc: Reports: back pain (chronic knee pain) and joint pain (chronic knee pain); Denies: joint swelling Neuro: Reports: numbness in extremities and sensory changes PFS ED PFSH: Medical History Nicotine dependence, cigarettes, uncomplicated Panic disorder [episodic paroxysmal anxiety] Post-traumatic stress disorder, chronic Psychiatric care Social History Smoking and tobacco status: current every day smoker cigarettes Packs smoked per day: 2 Physical Exam Const: COMMON NORMALS: no acute distress, average body habitus, patient oriented x3, no limitations, alert and well nourished Extremity: GENERAL: Yes normal exam except as noted OTHER: bilateral knee pain-exam is unchanged from previous examinations Neuro: COMMON NORMALS: patient oriented x3 SENSORIUM/ORIENTATION: Yes alert Course Vital Signs: Vital signs: Vital Signs Temperature 97.5 F L 08/13/22 12:36 Pulse Rate 80 08/13/22 12:36 Respiratory Rate 17 08/13/22 12:36 Blood Pressure 123/87 08/13/22 12:36 Pulse Oximetry 96 08/13/22 12:36 Oxygen Delivery Me thod 08/13/22 12:36 MDM - Extremity (Nontraumatic) Medical Decision Making I once again explained to patient that I would not be providing him any controlled/opiate pain medications for his chronic pain. Shortly after my examination patient eloped from the ED. Discharge Plan Discharge Patient Disposition: Home Clinical Impression: Chronic knee pain Qualifiers: Laterality: bilateral Qualified Code(s): M25.561 - Pain in right knee Condition: Stable Prescriptions: No Action clonazepam 0.5 mg tablet 0.5 mg PO QID PRN (Reason: anxiety) Qty: 120 2RF Discharge Orders: Discharge ED (Routine); Ordered 08/13/22 Ordered By: Shu Mireles Coding Level of Care Code ED Financial Planning Adviser for Ananth Pérez
--- NOTE | 2022-08-19 13:47 | DCPLANNER ---
Addendum entered by Moni Rosas 08/19/22 13:48: manager clinical research called patient due to no primary care physician - no answer at this time Original Note: 08.17.22 - patient was called due to no primary care physician -no answer at this time
== END 2022-08-13 13:50 | disposition home or self-care (01) ==
PROVIDERS: Emergency Provider Physician Assistant
DX: G89.29 Other chronic pain (principal); M25.561 Pain in right knee; F17.210 Nicotine dependence, cigarettes, uncomplicated
CPT/HCPCS: 99282

== ENCOUNTER → 2022-10-07 12:16 | Outpatient (BNVA) | payer OTHER, SELFPAY | PROVIDERS: Visit Provider Nurse Practitioner | DX: Z79.899 Other long term (current) drug therapy (principal) | CPT/HCPCS: 80307 ==

== ENCOUNTER 2023-01-18 20:18 | Emergency (ER) | payer OTHER, MEDICAID, SELFPAY ==
--- NOTE | 2023-01-18 20:25 | XRR_ITS ---
PROCEDURE INFORMATION: Exam: XR Chest Exam date and time: 01/18/2023 8:48 PM Age: 47 years old Clinical indication: Pain; Chest pressure; Patient HX: C/O chest tightness; Additional info: Cp TECHNIQUE: Imaging protocol: Radiologic exam of the chest. Views: 1 view. COMPARISON: No relevant prior studies available. FINDINGS: Lungs: Unremarkable. No consolidation. Pleural spaces: Unremarkable. No pleural effusion. No pneumothorax. Heart/Mediastinum: Unremarkable. No cardiomegaly. Bones/joints: Unremarkable. XR/XR chest 1V portable [id number] IMPRESSION: No acute findings.
[2023-01-18 20:27] VITALS: BP 143/88; PULSE 74; RESP 18; TEMP 37.1; O2SAT 98
--- NOTE | 2023-01-18 20:33 | ECG_ITS ---
[facility] Test Date: 2023-01-18 Pat Name: Vinayak Barnett Department: Room: Gender: Male Director Regulatory Affairs: : 1975 Requested By: Nghia Bailey Order Number: [id number] Lisbet MD: Abdelrahman Washburn M.D. Measurements Intervals [place] Rate: 73 P: 37 MO: 123 QRS: 71 QRSD: 89 T: 49 QT: 359 QTc: 396 Interpretive Statements SINUS RHYTHM WITH SINUS ARRHYTHMIA POSSIBLE RIGHT VENTRICULAR CONDUCTION DELAY [RSR (QR) IN V1/V2] Compared to ECG 01/18/2023 20:38:02 No significant changes Electronically Signed On 01-19-2023 9:55:42 CDT by Abdelrahman Washburn M.D. [id number]
--- NOTE | 2023-01-18 20:38 | ECG_ITS ---
[facility] Test Date: 2023-01-18 Pat Name: Vinayak Barnett Department: Room: Gender: Male Premix Operator Concentrate: : 1975 Requested By: Juan Diego Flynn Order Number: [id number] Reading MD: Abdelrahman Washburn M.D. Measurements Intervals [place] Rate: 77 P: 39 NM: 125 QRS: 56 QRSD: 90 T: 57 QT: 347 QTc: 394 Interpretive Statements SINUS RHYTHM POSSIBLE RIGHT VENTRICULAR CONDUCTION DELAY [RSR (QR) IN V1/V2] No previous ECG available for comparison Electronically Signed On 01-19-2023 9:55:33 CDT by Abdelrahman Washburn M.D. [id number]
[2023-01-18 20:55] LABS: Basophils # 0.1 10^3/uL (0.0-0.1); Basophils % 1.1 %; Eosinophils # 0.1 10^3/uL (0.0-0.8); Eosinophils % 1.9 %; Hematocrit 46.8 % (42.0-52.0); Hemoglobin 15.4 g/dL (11.7-16.6); Lymphocytes % 32.1 %; Mean Corpuscular HGB Conc 32.9 g/dL (30.0-36.0); Mean Corpuscular Hemoglobin 30.3 pg (28.0-34.0); Mean Corpuscular Volume 91.9 fl (80-94); Mean Platelet Volume 10.4 fL (7.4-10.4); Monocytes # 0.8 10^3/uL (0.2-0.9); Monocytes % 12.6 %; Neutrophils # 3.21 10^3/uL (1.8-7.7); Nucleated Red Blood Cells % 0 %; Platelet Count 279 10^3/cmm (130-400); Red Blood Count 5.09 10^6/uL (4.1-5.3); Red Cell Distribution Width 12.9 % (12.1-15.1); White Blood Count 6.2 10^3/uL (4.0-10.0)
--- NOTE | 2023-01-18 20:56 | ED_ITS ---
HPI - Chest Pain General: Chief Complaint: Chest Pain Stated Complaint: chest tightness, anxiety Time Seen by Provider: 01/18/23 20:34 Source: patient Mode of arrival: ambulatory Limitations: no limitations History of Present Illness: 47-year-old male who states he is having extreme anxiety over the last 2 months. States he was diagnosed with a PE 4 months ago he has been on Eliquis and states that over the last 2 months he just feels like his heart is racing and that his body is racing he is not able to get under control has been taking Vistaril he states with minimal relief he states he has been seen at [facility] multiple times [facility] multiple times and [facility] multiple times states had multiple CT scans that shows improvement of his PE he denies any fevers. Associated symptoms: Deny abdominal pain, dyspnea, fever(s), nausea or vomiting Review of Systems Const: Denies: fever(s) or chills ENMT: Denies: throat pain or dental pain Card: Reports: chest pain Resp: Denies: dyspnea GI: Denies: abdominal pain, nausea, vomiting or diarrhea : Denies: dysuria Musc: Denies: neck pain or back pain Skin/Breast: Denies: rash Neuro: Denies: headache(s) Psych: Reports: anxiety [facility] ED PFSH: Medical History Nicotine dependence, cigarettes, uncomplicated Panic disorder [episodic paroxysmal anxiety] Post-traumatic stress disorder, chronic Psychiatric care Social History Smoking and tobacco status: current every day smoker cigarettes Packs smoked per day: 2 Physical Exam Const: COMMON NORMALS: no acute distress, patient oriented x3 and healthy appearing GENERAL APPEARANCE: anxious HENMT: COMMON NORMALS: normocephalic and atraumatic HEAD & SCALP: normocephalic and atraumatic Eye: COMMON NORMALS: Equal, round and reactive pupils present and EOMs intact bilaterally PUPIL: Yes Equal, round and reactive pupils present Neck/C-Spine: COMMON NORMALS: full ROM and supple Chest: COMMONS NORMALS: normal inspection of the chest and normal palpation of entire chest wall Resp: COMMON NORMALS: normal respiratory effort, No retractions, No use of accessory muscles and clear to auscultation bilaterally AUSCULTATION: clear to auscultation bilaterally Cardio: COMMON NORMALS: regular rate, regular rhythm and No murmurs present (Cardio) RATE: regular rate RHYTHM: regular rhythm GI: COMMON NORMALS: Normal to inspection, nondistended, normoactive bowel sounds present, Soft to palpation, non-tender and no masses PALPATION: Yes Soft to palpation Extremity: COMMON NORMALS: normal to inspection and full ROM Neuro: COMMON NORMALS: patient oriented x3, moves all extremities and no focal motor deficits Psych: COMMON NORMALS: mental status grossly normal, Normal thought process present and cooperative THOUGHT PROCESS: Normal thought process present Skin: COMMON NORMALS: no rashes or lesions noted and no wounds GENERAL SKIN EXAM: no rashes or lesions noted Course Vital Signs: Vital signs: Vital Signs Temperature 98.8 F 01/18/23 20:27 Pulse Rate 74 01/18/23 20:27 Respiratory Rate 18 01/18/23 20:27 Blood Pressure 143/88 01/18/23 20:27 Pulse Oximetry 98 01/18/23 20:27 Oxygen Delivery Me thod Room Air 01/18/23 20:27 MDM - Chest Pain Medical Decision Making Patient presents for chest pain is atypical in nature his troponins here are negative he has no signs of pulmonary embolism or dissection he is stable for discharge a lot of this is likely anxiety he feels improved after Ativan. Medical Records I reviewed the patient's medical records. Lab Data I reviewed the patient's lab results. 01/18/23 20:47 01/18/23 20:47 Radiology Impressions Chest X-Ray 01/18/23 20:25 IMPRESSION: No acute findings. Laboratory Results WBC 6.2 10^3/uL (4.0-10.0) 01/18/23 20:47 RBC 5.09 10^6/uL (4.1-5.3) 01/18/23 20:47 Hgb 15.4 g/dL (11.7-16.6) 01/18/23 20:47 Hct 46.8 % (42.0-52.0) 01/18/23 20:47 MCV 91.9 fl (80-94) 01/18/23 20:47 MCH 30.3 pg (28.0-34.0) 01/18/23 20:47 MCHC 32.9 g/dL (30.0-36.0) 01/18/23 20:47 RDW 12.9 % (12.1-15.1) 01/18/23 20:47 Plt Count 279 10^3/cmm (130-400) 01/18/23 20:47 MPV 10.4 fL (7.4-10.4) 01/18/23 20:47 Neut % (Auto) 52.0 % 01/18/23 20:47 Lymph % (Auto) 32.1 % 01/18/23 20:47 Terry % (Auto) 12.6 % 01/18/23 20:47 Eos % (Auto) 1.9 % 01/18/23 20:47 Baso % (Auto) 1.1 % 01/18/23 20:47 Neut # (Auto) 3.21 10^3/uL (1.8-7.7) 01/18/23 20:47 Lymph # (Auto) 2.0 10^3/uL (0.8-4.8) 01/18/23 20:47 Terry # (Auto) 0.8 10^3/uL (0.2-0.9) 01/18/23 20:47 Eos # (Auto) 0.1 10^3/uL (0.0-0.8) 01/18/23 20:47 Baso # (Auto) 0.1 10^3/uL (0.0-0.1) 01/18/23 20:47 Nucleated RBC % (auto) 0 % 01/18/23 20:47 Nucleated RBCs # 0.0 /100WBC 01/18/23 20:47 PT 15.70 SECONDS (12.1-14.9) H 01/18/23 20:47 INR 1.21 (0.8-1.2) H 01/18/23 20:47 Sodium 137 mmol/L (136-145) 01/18/23 20:47 Potassium 3.9 mmol/L (3.5-5.1) 01/18/23 20:47 Chloride 100 mmol/L (98-107) 01/18/23 20:47 Carbon Dioxide 25 mmol/L (22-29) 01/18/23 20:47 Anion Gap 15.9 (5-19) 01/18/23 20:47 BUN 8 mg/dL (6-20) 01/18/23 20:47 Creatinine 1.0 mg/dL (0.7-1.2) 01/18/23 20:47 GFR Calculation 80.8 mL/min (90-130) L 01/18/23 20:47 Glucose 91 mg/dL (65-115) 01/18/23 20:47 Calculated Osmolality 282 mOsm/kg (285-295) L 01/18/23 20:47 Calcium 9.3 mg/dL (8.5-10.5) 01/18/23 20:47 Total Bilirubin 0.4 mg/dL (0.15-1.2) 01/18/23 20:47 AST 22 U/L (0-40) 01/18/23 20:47 ALT 20 U/L (0-41) 01/18/23 20:47 Alkaline Phosphatase 72 U/L (40-130) 01/18/23 20:47 Troponin T Baseline 7 ng/L (0-15) 01/18/23 20:47 Troponin T 120 Minute 14.48 ng/L (0-15) 01/18/23 22:56 Total Protein 7.2 g/dL (6.6-8.7) 01/18/23 20:47 Albumin 4.3 g/dL (3.5-5.2) 01/18/23 20:47 Globulin 2.9 g/dL (1.3-4.6) 01/18/23 20:47 EKG Data EKG 1: I personally reviewed and interpreted this EKG as follows: EKG interpretation date: 01/18/23 EKG interpretation time: 20:38 Interpretation: nsr hr [address] or t wave abnormalities qrs 90 qtc 379 Discharge Plan Discharge Patient Disposition: Home Clinical Impression: Chest pain Condition: Stable Prescriptions: No Action hydrocodone-acetaminophen 5-325 mg tablet 1 tab PO DAILY PRN (Reason: pain) apixaban 5 mg tablet 5 mg PO BID clonazepam 0.5 mg tablet 0.5 mg PO QID PRN (Reason: anxiety) Qty: 120 0RF Discharge Orders: Discharge ED (Routine); Ordered 01/18/23 Ordered By: Juan Diego Flynn Referrals: Bhavani Hart NP [Primary Care Provider] - Discharge Diet: Advance as tolerated Discharge Activity: Resume usual activity Patient Instructions: Chest Pain (ED) Coding Level of Care Code ED Livestock Rancher for Ananth Pérez
[2023-01-18 21:05] LABS: INR 1.21 (0.8-1.2)
[2023-01-18] MEDS: LORazepam 2 mg/mL INJ 1 mL 1 MG IVP (21:11)
[2023-01-18 21:29] LABS: Alanine Aminotransferase 20 U/L (0-41); Albumin Level 4.3 g/dL (3.5-5.2); Alkaline Phosphatase 72 U/L (40-130); Anion Gap 15.9 (5-19); Aspartate Amino Transferase 22 U/L (0-40); Blood Urea Nitrogen 8 mg/dL (6-20); Calcium 9.3 mg/dL (8.5-10.5); Carbon Dioxide 25 mmol/L (22-29); Chloride 100 mmol/L (98-107); Globulin 2.9 g/dL (1.3-4.6); Glomerular Filtration Rate 80.8 mL/min (90-130); Glucose 91 mg/dL (65-115); Osmolality Calculated 282 mOsm/kg (285-295); Potassium 3.9 mmol/L (3.5-5.1); Sodium 137 mmol/L (136-145); Total Bilirubin 0.4 mg/dL (0.15-1.2); Total Protein 7.2 g/dL (6.6-8.7)
[2023-01-18 21:30] LABS: Troponin(5th) Baseline 7 ng/L (0-15)
--- NOTE | 2023-01-18 22:25 | ECG_ITS ---
[facility] Test Date: 2023-01-18 Pat Name: Vinayak Barnett Department: Room: Gender: Male Interpersonal Communications Professor: : 1975 Requested By: Juan Diego Flynn Order Number: [id number] Lisbet MD: Abdelrahman Washburn M.D. Measurements Intervals [place] Rate: 64 P: 39 NV: 134 QRS: 44 QRSD: 85 T: 53 QT: 377 QTc: 390 Interpretive Statements SINUS RHYTHM Compared to ECG 01/18/2023 21:03:05 Sinus arrhythmia no longer present Electronically Signed On 01-19-2023 10:23:34 CDT by Abdelrahman Washburn M.D. [id number]
[2023-01-18 22:58] VITALS: BP 125/70; PULSE 68; O2SAT 98
[2023-01-18 23:47] LABS: Troponin 5 2HR 14.48 ng/L (0-15); Troponin 5 2HR Delta 7.48 ABS# (0-10)
[2023-01-19 00:02] VITALS: PULSE 70; RESP 16; O2SAT 99
== END 2023-01-18 23:59 | disposition home or self-care (01) ==
PROVIDERS: Emergency Provider Emergency Medicine; PCP Nurse Practitioner Family
DX: R07.9 Chest pain, unspecified (principal)
CPT/HCPCS: 36415; 71045; 80053; 84484; 85025; 85610; 93005; 96374; 99285; J2060

== ENCOUNTER 2023-04-17 09:07 | Outpatient (CLI) | payer OTHER, MEDICAID, SELFPAY ==
--- NOTE | 2023-04-17 09:18 | CT_ITS ---
WS: [id number] CT ABDOMEN AND PELVIS WITH AND WITHOUT CONTRAST HISTORY: DISORDER OF KIDNEY URETER/POOR URINARY STREAM TECHNIQUE: Unenhanced 5 mm axial imaging first performed through the abdomen. Post contrast imaging t hrough the abdomen and pelvis. Oral contrast has not been provided. Sagittal and coronal reformats a re submitted. All CT scans at [facility] use at least one of these dose optimization techniqu es: automated exposure control; mA and/or kV adjustment per patient size (includes targeted exams whe re dose is matched to clinical indication); or iterative reconstruction. CONTRAST: Omnipaque 350; 95 mL IV. DLP: 1768.63 mGy.cm COMPARISON: None available. Lung bases are clear. Heart is normal size. No hiatal hernia. Liver, spleen, pancreas and gallbladder are negative. No bile duct dilatation. Normal adrenal glands. Normal aorta. RIGHT kidney: 11.1 cm in length. There is an exophytic low-attenuation mass from the lower pole measu ring 9 x 8 mm. Hounsfield units are slightly elevated on the noncontrast exam but there is no enhance ment. No calcifications. LEFT kidney: 10.6 cm in length. No mass or obstruction. On the delayed imaging both ureters are well opacified with contrast. No uroepithelial masses or obst ruction. Urinary bladder: Normally distended. Ureteral jets are identified on the delayed imaging through the bladder. No GI tract obstruction. No evidence for colitis. Normal appendix. No free fluid or adenopathy. IMPRESSION: 1. Complex cyst lower pole RIGHT kidney measures 9 x 8 mm. No solid mass. 2. No uroepithelial lesions or obstruction. 3. No adenopathy or ascites.
[2023-04-17] MEDS: iohexol 350 mg/mL 500 mL Btl (per mL) IV (09:45)
== END 2023-04-17 09:08 | disposition home or self-care (01) ==
LOC: RAD 09:07
PROVIDERS: PCP Nurse Practitioner Family; Visit Provider Nurse Practitioner Family
DX: N28.9 Disorder of kidney and ureter, unspecified (principal); R39.12 Poor urinary stream; N28.1 Cyst of kidney, acquired
CPT/HCPCS: 74178; Q9967

== ENCOUNTER → 2023-06-10 12:03 | Outpatient (BNVA) | payer OTHER, MEDICAID, SELFPAY | PROVIDERS: PCP Nurse Practitioner Family; Visit Provider Nurse Practitioner | DX: Z02.83 Encounter for blood-alcohol and blood-drug test (principal) | CPT/HCPCS: 80306 ==

== ENCOUNTER 2023-09-10 10:00 | Outpatient (CLI) | payer OTHER, MEDICAID, SELFPAY ==
--- NOTE | 2023-09-10 | ECG_ITS ---
[facility] Test Date: 2023-09-10 Pat Name: Vinayak Barnett Department: Room: Gender: Male Medical Record Assistant: Lupe Rivera : 1975 Requested By: Ridge Walter Order Number: [id number] Lisbet MD: Edilberto Brown M.D. Interpretive Statements NAME OF STUDY: TREADMILL STRESS TEST INDICATION: [Dyspnea on Exertion] EXERCISE DATA: The patient was exercised by Mitchell protocol. Baseline heart rate was 77 beats per minute. Baseline blood pressure was 120/82 millimeters of mercury. Maximal predicted heart rate was 174 beats per minute. Maximum heart rate achieved was 175 which was 100% of the maximum predicted heart rate. Maximum blood pressure was 154/52 millimeters of mercury. Total exercise time was 9 minutes. Maximum METs achieved was 10.2. The reason for ending the test was completion of protocol. The patient complained of shortness of breath during the stress test, which then resolved at the end of the test. ELECTROCARDIOGRAM: BASELINE: Showed sinus rhythm, normal axis, no significant ST-T changes at the baseline noted. [] EXERCISE: At the peak exercise level, [] No significant ST-T changes suggestive of ischemia noted. [] RECOVERY: During the recovery period, heart rate dropped appropriately. No significant ST-T changes in the recovery suggestive of ischemia noted. [] CONCLUSION: 1. Exercise capacity is good. 2. Heart rate response was appropriate. 3. Blood pressure response was appropriate. 4. Symptoms not suggestive of ischemia. 5. Stress test did not show ischemia. Electronically Signed On 09-24-2023 11:57:01 CDT by Edilberto Brown M.D. [id number]
[2023-09-10 10:14] VITALS: BMI 28.2
[2023-09-10 10:58] VITALS: BP 127/78; PULSE 100
== END 2023-09-10 10:01 | disposition home or self-care (01) ==
LOC: CDL 10:01
PROVIDERS: PCP Family Medicine; Visit Provider Family Medicine
DX: R06.00 Dyspnea, unspecified (principal)
CPT/HCPCS: 93017